=== PATIENT | female | born 1965 | race Caucasian/White ===

== ENCOUNTER 2016-09-03 16:23 | Emergency (ER) | payer SELFPAY ==
[2016-09-03 16:53] VITALS: BP 167/72; PULSE 85; RESP 18; TEMP 98.9
--- NOTE | 2016-09-03 17:08 | ED ---
General Adult HPI - General Chief complaint: Skin/Abscess/Foreign Body Stated complaint: Abscess Time Seen by Provider: 09/03/16 16:45 Source: patient, RN notes reviewed Mode of arrival: ambulatory Limitations: no limitations - History of Present Illness Initial comments: This is a 51-year-old female who presents with an abscess to the left buttock. Patient states she noticed this today. Patient states she has a history of abscess. Patient has not noticed any drainage from the wound but admits that her tried to poke it to get drainage out. Patient states she has a history of MRSA. Patient denies any fever/chills, nausea/vomiting/diarrhea. Patient past medical history significant for hypertension. Patient denies any recent fever, chills, shortness breath, chest pain, abdominal pain, nausea/ vomiting/diarrhea, back pain, numbness, tingling, hematuria, headache, or visual changes, or any other complaints. - Related Data Home Medications Medication Instructions Recorded Confirmed Calcium Carbonate [Calcium] 600 mg PO DAILY 01/29/16 09/03/16 Triamterene/Hydrochlorothiazid 1 tab PO DAILY 01/29/16 09/03/16 [Maxzide 37.5-25] Previous Rx's Medication Instructions Recorded HYDROcodone/APAP 5-325MG [[place] 1 tab PO Q6HR #12 tab 09/03/16 5-325] Sulfamethox-Tmp 800-160Mg [Bactrim 1 tab PO Q12HR #28 tab 09/03/16 DS 800-160 mg] Allergies Allergy/AdvReac Type Severity Reaction Status Date / Time cephalexin monohydrate Allergy Unknown Verified 09/03/16 16:51 [From Keflex] Review of Systems ROS Statement: Those systems with pertinent positive or pertinent negative responses have been documented in the HPI. ROS Other: All systems not noted in ROS Statement are negative. Past Medical History Past Medical History: Hypertension History of Any Multi-Drug Resistant Organisms: MRSA Date of last positivie culture/infection: 01/29/16 MDRO Source:: Abdomen Past Surgical History: Tubal Ligation Past Anesthesia/Blood Transfusion Reactions: No Reported Reaction Past Psychological History: No Psychological Hx Reported Additional Psychological History / Comment(s): . Works in an [employer] setting. Smoked in the past related has been many years. No significant alcohol use. No recreational drug use. No travel history. Pet dog since July. Noted also in the home has MRSA or skin infections. No history Smoking Status: Former smoker Past Alcohol Use History: Rare Past Drug Use History: None Reported - Past Family History Father Family Medical History: Cancer, Congestive Heart Failure (CHF), Hypertension Additional Family Medical History / Comment(s): Prostate CA Mother Family Medical History: Hypertension General Exam - General Exam Comments Initial Comments: General: The patient is awake and alert, in no distress, and does not appear acutely ill. Neck: The neck is supple, there is no tenderness or JVD. Cardiovascular: There is a regular rate and rhythm. No murmur, rub or gallop is appreciated. Respiratory: Lungs are clear to auscultation, respirations are non-labored, breath sounds are equal. No wheezes, stridor, rales, or rhonchi. Musculoskeletal: Normal ROM, no tenderness. Strength 5/5. Sensation intact. Radial Pulses equal bilaterally 2+. Neurological: A&O x 3. CN II-XII intact, There are no obvious motor or sensory deficits. Coordination appears grossly intact. Speech is normal. Skin: There is an erythematous area to the left buttock approximately 5 cm that is indurated, erythematous and tender. There is a central black eschar. No drainage present. Skin is warm and dry. Psychiatric: Cooperative, appropriate mood & affect, normal judgment. Limitations: no limitations Course Vital Signs 09/03/16 16:51 Temperature 98.9 F Pulse Rate 85 Respiratory 18 Rate Blood Pressure 167/72 O2 Sat by Pulse 98 Oximetry Procedures - Procedures Initial comment: Procedure: Incision and drainage The skin overlying the abscess was prepped with Betadine, and anesthetized with 1% lidocaine without epinephrine. A #11 scalpel was then used to incise the abscess. Some purulent material was then extracted from the lesion. Wound culture obtained. Gauze dressing placed on top, The patient tolerated the procedure well. Medical Decision Making - Medical Decision Making This is a 51-year-old female presents to the abscess to the left buttock. On physical exam There is an erythematous area to the left buttock approximately 5 cm that is indurated, erythematous and tender. There is a central black eschar. No drainage present. Skin is warm and dry. Procedure: Incision and drainage The skin overlying the abscess was prepped with Betadine, and anesthetized with 1% lidocaine without epinephrine. A #11 scalpel was then used to incise the abscess. Some purulent material was then extracted from the lesion. Wound culture obtained. Gauze dressing placed on top, The patient tolerated the procedure well. Discussed that patient was put on a course of Bactrim. Discussed warm compresses to the area. Discussed return parameters.Discussed that patient should follow up with PCP in one to 2 days or return to the [facility] for any worsening symptoms or for any further concerns. Patient and were receptive to this plan and patient will be discharged home. Disposition Clinical Impression: Abscess Disposition: HOME SELF-CARE Condition: Good Instructions: Abscess (ED) Additional Instructions: Present diagnosis antibiotics. Please use warm compresses to the area. Please use pain medication as prescribed. Please follow-up with family doctor in the next 2 days of symptoms have not improved. Please return to emergency room if the symptoms increase or worsen or for any other concerns. Prescriptions: Sulfamethox-Tmp 800-160Mg [Bactrim DS 800-160 mg] 1 tab PO Q12HR #28 tab Referrals: None,Stated [Primary Care Provider] - 1-2 days Time of Disposition: 18:07
== END 2016-09-03 18:18 | disposition home or self-care (01) ==
LOC: EC 16:23
DX: L02.31 Cutaneous abscess of buttock (principal); Z86.14 Personal history of Methicillin resistant Staphylococcus aureus infection; I10 Essential (primary) hypertension; Z79.899 Other long term (current) drug therapy; Z88.1 Allergy status to other antibiotic agents; Z87.891 Personal history of nicotine dependence
CPT/HCPCS: 10060; 87070; 87077; 87186; 87205; 99283

== ENCOUNTER 2020-07-12 07:59 | Day surgery (SDC) | payer OTHER ==
[2020-07-06 17:00] VITALS: BMI 46.0
--- NOTE | 2020-07-12 06:30 | P.GSHP ---
History of Present Illness H&P Date: 07/12/20 CHIEF COMPLAINT: GERD and colon screen HISTORY OF PRESENT ILLNESS: The patient is a 55-year-old female who presents with gastroesophageal reflux disease and need for colon screen. Upper and lower endoscopy were offered for further evaluation and management. PAST MEDICAL HISTORY: Please see list. PAST SURGICAL HISTORY: Please see list. MEDICATIONS: Please see list. ALLERGIES: Please see list. SOCIAL HISTORY: No illicit drug use FAMILY HISTORY: No reports of Crohn disease or ulcerative colitis. REVIEW OF ORGAN SYSTEMS: CONSTITUTIONAL: No reports of fevers or chills. GI: Denies any blood in stools or constipation. PHYSICAL EXAM: VITAL SIGNS: Stable GENERAL: Well-developed pleasant in no acute distress. HEENT: No scleral icterus. Extraocular movements grossly intact. Moist buccal mucosa. NECK: Supple without lymphadenopathy. CHEST: Unlabored respirations. Equal bilateral excursions. CARDIOVASCULAR: Regular rate and rhythm. Distal 2+ pulses. ABDOMEN: Soft, nondistended. MUSCULOSKELETAL: No clubbing, cyanosis, or edema. ASSESSMENT: 1. Gastroesophageal reflux disease 2. Colon screen. PLAN: 1. Recommend proceeding with an upper and lower endoscopy Past Medical History Past Medical History: Hypertension, Sleep Apnea/CPAP/BIPAP Additional Past Medical History / Comment(s): No tx for sleep apnea yet. History of Any Multi-Drug Resistant Organisms: MRSA Date of last positivie culture/infection: 09/03/16 MDRO Source:: buttock Past Surgical History: Joint Replacement, Orthopedic Surgery, Tonsillectomy, Tubal Ligation Additional Past Surgical History / Comment(s): Total left knee replacement 2017; Rt Total Knee 05/29/20. Colonoscopy Past Anesthesia/Blood Transfusion Reactions: No Reported Reaction Smoking Status: Former smoker - Past Family History Father Family Medical History: Cancer, Congestive Heart Failure (CHF), Hypertension Additional Family Medical History / Comment(s): Prostate CA Mother Family Medical History: Hypertension Brother(s) Family Medical History: Cancer Additional Family Medical History / Comment(s): pancreatic cancer Medications and Allergies Home Medications Medication Instructions Recorded Confirmed Type Triamterene/Hydrochlorothiazid 1 tab PO DAILY 01/29/16 07/06/20 History [Maxzide 37.5-25] Ascorbic Acid [Vitamin C] 500 mg PO DAILY 04/25/20 07/06/20 History Calcium Carbonate/Vitamin D3 1 each PO DAILY 04/25/20 07/06/20 History [Calcium 600-Vit D3 800 Caplet] Cetirizine HCl [Zyrtec] 10 mg PO DAILY 04/25/20 07/06/20 History Famotidine [Pepcid] 20 mg PO BID PRN 04/25/20 07/06/20 History Losartan [Cozaar] 25 mg PO DAILY 04/25/20 07/06/20 History Magnesium 250 mg PO DIRECTED 04/25/20 07/06/20 History Multivitamins, Thera [Multivitamin 1 tab PO DAILY 04/25/20 07/06/20 History (formulary)] Naproxen 500 mg PO DAILY PRN 04/25/20 07/06/20 History Zinc 50 mg PO DAILY 04/25/20 07/06/20 History hydrOXYzine HCL [Atarax] 50 mg PO HS 04/25/20 07/06/20 History Acetaminophen [Tylenol Extra 1,000 mg PO Q6H PRN 07/06/20 07/06/20 History Strength] Biotin 20,000 mcg PO DAILY 07/06/20 07/06/20 History Cyclobenzaprine [Flexeril] 10 mg PO Q12H 07/06/20 07/06/20 History Ferrous Sulfate [Feosol] 325 mg PO DAILY 07/06/20 07/06/20 History HYDROcodone/APAP 5-325MG [[place] 1 tab PO Q6HR PRN 07/06/20 07/06/20 History 5-325] Ibuprofen [Motrin Ib] 600 - 800 mg PO Q8H PRN 07/06/20 07/06/20 History Allergies Allergy/AdvReac Type Severity Reaction Status Date / Time cephalexin monohydrate Allergy Unknown Verified 07/06/20 16:22 [From Keflex]
[~2020-07-12 07:59] MED LIST: LACTATED RINGERS 1,000 ML IV SCH
[2020-07-12 08:28] VITALS: RESP 16; TEMP 97.4
[2020-07-12] MEDS ORDERED: LIDOCAINE 1% (10MG/ML) FOR IV START INTRADERMA ONE (08:28)
[2020-07-12] MEDS ORDERED: LIDOCAINE 1% INJ 10MG/ML (20 ML MDV) ONE (08:30)
[2020-07-12] MEDS ORDERED: PROPOFOL 10 MG/ML 20 ML VIAL IV ONE (08:30)
[2020-07-12] MEDS ORDERED: MIDAZOLAM 2 MG/2 ML VIAL ONE (08:30)
[2020-07-12] MEDS ORDERED: fentaNYL (PF) 50 MCG/ML 2 ML AMP ONE (08:30)
[2020-07-12 09:34] VITALS: BP 127/83; PULSE 85
--- NOTE | 2020-07-12 09:35 | P.PCN ---
Date of Procedure: 07/12/20 Description of Procedure: PREOPERATIVE DIAGNOSIS: Gastroesophageal reflux disease. Morbid obesity. POSTOPERATIVE DIAGNOSIS: Morbid obesity. Gastritis. Gastroesophageal reflux disease. Diaphragmatic hiatal hernia Severe obstructive sleep apnea Duodenitis OPERATION: Esophagogastroduodenoscopy with biopsies along antrum. SURGEON: Fela Bernabe MD ANESTHESIA: MAC. INDICATIONS: The patient is a 55-year-old female who presents with a history of reflux disease. Benefits and risks of the procedure were described. Informed consent was obtained. DESCRIPTION: The patient was brought into the endoscopy suite and laid in the left lateral decubitus position. An Olympus gastroscope was passed along the posterior oropharynx down to the distal esophagus where the squamocolumnar junction was encountered at 37 cm from the incisors. Patient had severe posterior oral pharyngeal excess tissue at risk for obstructive sleep apnea. The stomach was entered and no bile reflux was found. Additional findings are listed below. Biopsies with cold forceps were obtained of the antrum. The first through third portion of the duodenum was examined and remarkable. Retroflexion of the scope confirmed Hill grade 3 lower esophageal valve. The squamocolumnar junction demonstrated LA grade B erosive esophagitis. The stomach was desufflated. The patient tolerated the procedure well. FINDINGS: Squamocolumnar junction 40 cm from the incisors. Diaphragmatic hiatus at 40 cm. Hiatal hernia, 4 cm Hill grade 4 lower esophageal valve. LA grade B erosive esophagitis. No active duodenitis. Chronic gastritis with recent bleed Severe obstructive sleep apnea RECOMMENDATIONS: 1. Upper endoscopy as needed. 2. Recommend assessment with bookmaker map for obstructive sleep apnea
--- NOTE | 2020-07-12 09:43 | P.PCN ---
Date of Procedure: 07/12/20 Description of Procedure: PREOPERATIVE DIAGNOSIS: History of polyps POSTOPERATIVE DIAGNOSIS: Moderate severe sigmoid colitis Inflammatory polyps OPERATION: Colonoscopy to the sigmoid colon and cold forceps biopsy SURGEON: Fela Bernabe MD. ANESTHESIA: MAC. INDICATIONS: The patient is a 55-year-old female who presents for colonoscopy screening. Her last colonoscopy was 5 years with history of polyps. Benefits and risks were described and informed consent was obtained. DESCRIPTION OF PROCEDURE: The patient had undergone Gatorade, MiraLAX and Dulcolax prep. She had been brought into the operating room and laid in the left lateral decubitus position. After adequate intravenous sedation, the rectum was examined with 2% lidocaine jelly. No external hemorrhoids were encountered. The rectal tone was loose. The patient had hypoxia due to sleep apnea and tachycardia. No lesions were pal pated in the rectal vault. An Olympus colonoscope was advanced along the rectum to a very tortuous sigmoid colon. Additionally, severe sigmoid colitis and stricture was identified with 3 mm inflammatory polyp prohibiting advancement of the scope. The prep was also suboptimal. Despite multiple maneuvers including patient's hypoxia due to severe obstructive sleep apnea, the procedure was aborted. The scope was passed to 30 cm from the anal verge. Cold forceps biopsies were obtained of the sigmoid colon As the patient posed high risk for postprocedural complications due to her comorbidities, the procedure was discontinued. The colon was desufflated. The patient was transferred to recovery. Withdrawal time was over 6 minutes. FINDINGS: [place] preparation quality scale 3 (1-5) Tortuous sigmoid colon with ctive moderate to severe sigmoid colitis and stricture at 30 cm from the anal verge No external prolapsed hemorrhoids. Scope advanced to sigmoid colon at 30 cm. No arteriovenous malformations. Inflammatory polyp 3 mm with biopsy obtained. No focal colitis. RECOMMENDATIONS: 1. Recommend assessment with routing machine operator for severe obstructive sleep apnea including cardiovascular assessment. 2. Repeat colonoscopy 6 months, January [address] of the abdomen and pelvis or severity of colitis Plan - Discharge Summary Discharge Rx Participant: No New Discharge Prescriptions: Continue Triamterene/Hydrochlorothiazid [Maxzide 37.5-25] 1 tab PO DAILY Zinc 50 mg PO DAILY Naproxen 500 mg PO DAILY PRN PRN Reason: Pain Multivitamins, Thera [Multivitamin (formulary)] 1 tab PO DAILY Magnesium 250 mg PO DIRECTED Losartan [Cozaar] 25 mg PO DAILY Famotidine [Pepcid] 20 mg PO BID PRN PRN Reason: Itching Cetirizine HCl [Zyrtec] 10 mg PO DAILY Calcium Carbonate/Vitamin D3 [Calcium 600-Vit D3 800 Caplet] 1 each PO DAILY Ascorbic Acid [Vitamin C] 500 mg PO DAILY hydrOXYzine HCL [Atarax] 50 mg PO HS Ibuprofen [Motrin Ib] 600 - 800 mg PO Q8H PRN PRN Reason: PAIN, SWELLING Acetaminophen [Tylenol Extra Strength] 1,000 mg PO Q6H PRN PRN Reason: Pain Biotin 20,000 mcg PO DAILY HYDROcodone/APAP 5-325MG [[place] 5-325] 1 tab PO Q6HR PRN PRN Reason: Pain Cyclobenzaprine [Flexeril] 10 mg PO Q12H Ferrous Sulfate [Iron (65 MG Elemental)] 325 mg PO DAILY Discharge Medication List Triamterene/Hydrochlorothiazid [Maxzide 37.5-25] 1 tab PO DAILY 01/29/16 [History] Ascorbic Acid [Vitamin C] 500 mg PO DAILY 04/25/20 [History] Calcium Carbonate/Vitamin D3 [Calcium 600-Vit D3 800 Caplet] 1 each PO DAILY 04/25/20 [History] Cetirizine HCl [Zyrtec] 10 mg PO DAILY 04/25/20 [History] Famotidine [Pepcid] 20 mg PO BID PRN 04/25/20 [History] Losartan [Cozaar] 25 mg PO DAILY 04/25/20 [History] Magnesium 250 mg PO DIRECTED 04/25/20 [History] Multivitamins, Thera [Multivitamin (formulary)] 1 tab PO DAILY 04/25/20 [History] Naproxen 500 mg PO DAILY PRN 04/25/20 [History] Zinc 50 mg PO DAILY 04/25/20 [History] hydrOXYzine HCL [Atarax] 50 mg PO HS 04/25/20 [History] Acetaminophen [Tylenol Extra Strength] 1,000 mg PO Q6H PRN 07/06/20 [History] Biotin 20,000 mcg PO DAILY 07/06/20 [History] Cyclobenzaprine [Flexeril] 10 mg PO Q12H 07/06/20 [History] Ferrous Sulfate [Iron (65 MG Elemental)] 325 mg PO DAILY 07/06/20 [History] HYDROcodone/APAP 5-325MG [[place] 5-325] 1 tab PO Q6HR PRN 07/06/20 [History] Ibuprofen [Motrin Ib] 600 - 800 mg PO Q8H PRN 07/06/20 [History] [facility] [facility] [place] [place] [place] [facility] [place] [facility] Patient Instructions/Handouts: *[facility] - (Anesthesia) Endoscopy Discharge Instructions, Sleep Apnea (GEN), Ulcerative Colitis (DC), Colonoscopy (DC), Upper Endoscopy (DC) Activity/Diet/Wound Care/Special Instructions: Repeat colonoscopy in 6 months following resolution of colitis, January 2021 Discharge Disposition: HOME SELF-CARE
== END 2020-07-12 10:30 | disposition home or self-care (01) ==
LOC: ORWHC2ENDO 07:59
PROVIDERS: ATTEND Surgery Plastic and Reconstructive Surgery
DX: Z12.11 Encounter for screening for malignant neoplasm of colon (principal); K29.50 Unspecified chronic gastritis without bleeding; K52.9 Noninfective gastroenteritis and colitis, unspecified; K44.9 Diaphragmatic hernia without obstruction or gangrene; K21.00 Gastro-esophageal reflux disease with esophagitis, without bleeding; G47.33 Obstructive sleep apnea (adult) (pediatric); Q43.8 Other specified congenital malformations of intestine; R09.02 Hypoxemia; E66.01 Morbid (severe) obesity due to excess calories; Z86.010 Personal history of colon polyps; Z68.41 Body mass index [BMI] 40.0-44.9, adult; I10 Essential (primary) hypertension; Z86.14 Personal history of Methicillin resistant Staphylococcus aureus infection; Z98.51 Tubal ligation status; Z96.653 Presence of artificial knee joint, bilateral; Z98.890 Other specified postprocedural states; Z82.49 Family history of ischemic heart disease and other diseases of the circulatory system; Z80.42 Family history of malignant neoplasm of prostate; Z80.0 Family history of malignant neoplasm of digestive organs; Z79.52 Long term (current) use of systemic steroids; Z79.899 Other long term (current) drug therapy; Z88.1 Allergy status to other antibiotic agents
CPT/HCPCS: 88305; 43239; 45331; J2250; J2001; J3010; J2704; 45380

== ENCOUNTER → 2020-07-18 | Outpatient (CLI) | payer OTHER ==
--- NOTE | 2020-07-18 15:03 | P.PN ---
Subjective Progress Note Date: 07/18/20 DATE OF SERVICE: 07/18/2020 CHIEF COMPLAINT: Morbid obesity HISTORY OF PRESENT ILLNESS: Tamiko Dasilva is a 55-year-old female who comes with lifelong morbid obesity. She comes in looking into the sleeve gastrectomy. She has family history of obesity. As a result of her morbid obesity, she has developed hypertensive heart disease, osteoarthritis of the knees. She has completed both upper and lower endoscopy. She presents following her procedures. She is undergoing medical supervised weight loss. At height of 5 feet 3 inches, her ideal body weight is 140 pounds. She comes in 253 pounds from 258 pounds 3 months ago. She has lost 5 pounds in 3 months. Her body mass index is 45.9 down to 45.0. She is 113 pounds overweight. PAST MEDICAL HISTORY: 1. Morbid obesity due to excess calories 2. Body mass index 45.9 3. Hypertensive heart disease 4. Gastroesophageal reflux disease 5. Osteoarthritis of the knee PAST SURGICAL HISTORY: 1. Left total knee replacement HOME MEDICATIONS: Home Medications Medication Instructions Recorded Confirmed Triamterene/Hydrochlorothiazid 1 tab PO DAILY 01/29/16 07/18/20 [Maxzide 37.5-25] Ascorbic Acid [Vitamin C] 500 mg PO DAILY 04/25/20 07/18/20 Calcium Carbonate/Vitamin D3 1 each PO DAILY 04/25/20 07/18/20 [Calcium 600-Vit D3 800 Caplet] Cetirizine HCl [Zyrtec] 10 mg PO DAILY 04/25/20 07/18/20 Famotidine [Pepcid] 20 mg PO BID PRN 04/25/20 07/18/20 Losartan [Cozaar] 25 mg PO DAILY 04/25/20 07/18/20 Magnesium 250 mg PO DIRECTED 04/25/20 07/18/20 Multivitamins, Thera [Multivitamin 1 tab PO DAILY 04/25/20 07/18/20 (formulary)] Naproxen 500 mg PO DAILY PRN 04/25/20 07/18/20 Zinc 50 mg PO DAILY 04/25/20 07/18/20 hydrOXYzine HCL [Atarax] 50 mg PO HS 04/25/20 07/18/20 Acetaminophen [Tylenol Extra 1,000 mg PO Q6H PRN 07/06/20 07/18/20 Strength] Biotin 20,000 mcg PO DAILY 07/06/20 07/18/20 Cyclobenzaprine [Flexeril] 10 mg PO Q12H 07/06/20 07/18/20 Ferrous Sulfate [Iron (65 MG 325 mg PO DAILY 07/06/20 07/18/20 Elemental)] HYDROcodone/APAP 5-325MG [[place] 1 tab PO Q6HR PRN 07/06/20 07/18/20 5-325] Ibuprofen [Motrin Ib] 600 - 800 mg PO Q8H PRN 07/06/20 07/18/20 ALLERGIES: Allergies Allergy/AdvReac Type Severity Reaction Status Date / Time cephalexin monohydrate Allergy Unknown Verified 07/18/20 17:09 [From Philoptima] SOCIAL HISTORY: Past tobacco use. FAMILY HISTORY: No family history of ulcerative colitis disease or Crohn's disease. Family history of morbid obesity. No lupus in the family. No reports of stomach or esophageal cancer. REVIEW OF ORGAN SYSTEMS: CONSTITUTIONAL: At height of 5 feet 3 inches, her ideal body weight is 140 pounds. Her body mass index is 45.9 She is 118 pounds overweight. HEENT: Denies any active troubles with vision or hearing. ENDOCRINE: Denies diabetes. No hypothyroidism. CARDIOVASCULAR: Denies past reports of palpitations or heart attacks or chest pain. RESPIRATORY: Has daytime somnolence. No asthma. GASTROINTESTINAL: Denies any bright red blood per rectum. No diarrhea. No constipation. Has gastroesophageal reflux disease. MUSCULOSKELETAL: Has lower back pain and joint pain. Has osteoarthritis of the knees. NEURO: No headaches. No seizure disorders. PSYCH: Has depression. No suicidal ideation. RHEUMATOLOGIC: No lupus. No rheumatoid arthritis. HEMATOLOGIC: Denies any abnormal bleeding or bruising. No personal history of DVTs. SKIN: No rash. No skin cancer. PHYSICAL EXAM: VITAL SIGNS: Height 5 foot 3 inches, weight 253 pounds. BMI 45.0 Vital Signs Temp 98.3 F 07/18/20 15:05 Pulse 89 07/18/20 15:05 Resp 18 07/18/20 15:05 BP 138/93 07/18/20 15:05 Pulse Ox GENERAL: Well-developed in no acute distress. HEENT: No scleral icterus. Extraocular movements grossly intact. Hears conversational speech. No nasal drainage. NECK: Supple without lymphadenopathy. CHEST: Nonlabored respirations with equal bilateral excursions. CARDIOVASCULAR: Regular rate and regular rhythm. Distal 2+ pulses. ABDOMEN: Obese, soft, nontender, nondistended. MUSCULOSKELETAL: No clubbing, cyanosis. NEURO: No focal or lateralizing signs. Cranial nerves 2 through 12 grossly within normal limits. PSYCH: Appropriate affect. Alert and oriented to person, place and time. SKIN: Good skin turgor. Well perfused. LABS: Iron is low, Pre-albumin is low, Vitamin A is low, Vitamin D is low EKG: Left atrial enlargement COLONOSCOPY: [place] preparation quality scale 3 (1-5) Tortuous sigmoid colon with ctive moderate to severe sigmoid colitis and stricture at 30 cm from the anal verge No external prolapsed hemorrhoids. Scope advanced to sigmoid colon at 30 cm. No arteriovenous malformations. Inflammatory polyp 3 mm with biopsy obtained. No focal colitis. EGD REPORT: Squamocolumnar junction 37 cm from the incisors. Diaphragmatic hiatus at 41 cm. Hiatal hernia, 4 cm Hill grade 4 lower esophageal valve. LA grade B erosive esophagitis. No active duodenitis. Chronic gastritis with recent bleed Severe obstructive sleep apnea PATHOLOGY: A. GASTRIC ANTRUM, BIOPSY: Moderate chronic gastritis. Helicobacter pylori organisms are not identified on routine H+E sections. B. SIGMOID COLON, BIOPSY: Non-specific acute colitis. See note. ASSESSMENT: 1. Morbid obesity due to excess calories 2. Body mass index 45.9 to 45.0 3. Hypertensive heart disease 4. Gastroesophageal reflux disease 5. Osteoarthritis of the knee 6. Gallbladder disorder 7. Colitis 8. Severe obstructive sleep apnea PLAN: 1. She has gastroesophageal reflux disease with a loss valve. Recommend esophagram. 2. Her colonoscopy demonstrated colitis. Recommend CT of the abdomen and pelvis for ischemic colitis. 3. Recommend cardiac clearance for abnormal EKG. 4. Recommend colonoscopy repeat for follow-up of colitis. 5. During her procedure, she has severe apnea, which would require treatment prior to her bariatric procedure. Objective - Vital Signs Vital signs: Intake & Output 07/17/20 07/18/20 07/18/20 18:59 06:59 18:59 Weight 115.212 kg - Labs CBC & Chem 7: 07/18/20 15:37 07/18/20 15:37
[2020-07-18 15:08] VITALS: BP 138/93; PULSE 89; RESP 18; TEMP 98.3; BMI 44.9
[2020-07-18 16:52] LABS: HCT 39.5 % (34.0-46.0); HGB 12.5 gm/dL (11.4-16.0); MCH 28.3 pg (25.0-35.0); MCHC 31.6 g/dL (31.0-37.0); MCV 89.5 fL (80.0-100.0); Mean Platelet Volume 7.2; Platelet Count 350 k/uL (150-450); RBC 4.41 m/uL (3.80-5.40); RDW 14.8 % (11.5-15.5)
[2020-07-19 00:59] LABS: Partial Thromboplastin Time 29.6 sec (23.5-31.0); Prothrombin Time 10.8 sec (9.9-11.9)
[2020-07-19 03:20] LABS: Hemoglobin A1C 5.6 % (4.0-6.0)
[2020-07-19 04:43] LABS: % Iron Saturation 10.03 (12.00-45.00); ALT 27 U/L (8-44); AST 25 U/L (13-35); African American GFR (CKD) 118.1 (60.0-200.0); Albumin/Globulin Ratio 1.83 (1.60-3.17); Alkaline Phosphatase 77 U/L (41-126); BUN/Creat Ratio 16.67 Ratio (12.00-20.00); Carbon Dioxide 28.3 mmol/L (21.6-31.8); Chloride 103 mmol/L (96-109); Chol/HDL Ratio 3.45; Cholesterol 145 mg/dL (0-200); Globulin 2.4 g/dL (1.6-3.3); Glucose 74 mg/dL (70-110); Iron 31 ug/dL (50-170); LDL Cholesterol,Calculated 75.6 mg/dL (0.0-131.0); Non-African American GFR(CKD) 101.9 (60.0-200.0); Potassium 3.7 mmol/L (3.5-5.5); Sodium 141 mmol/L (135-145); Total Bilirubin 0.3 mg/dL (0.3-1.2); Total Iron Binding Capacity 309 ug/dL (228-460); Total Protein 6.8 g/dL (6.2-8.2)
[2020-07-19 04:51] LABS: Ferritin 30.4 ng/mL (10.0-291.0)
[2020-07-19 05:43] LABS: Folate, Serum >24.0 ng/mL
[2020-07-19 12:43] LABS: Zinc, Serum 104 ug/dL (60-130)
[2020-07-20 07:14] LABS: Vitamin A 30 ug/dL (38-106)
[2020-07-20 07:20] LABS: Vit B1(Thiamine) 78 ug/L (38-122)
[2020-07-22 02:36] LABS: Selenium 106 mcg/L (63-160)
== END | disposition home or self-care (01) ==
LOC: BARWHC3 13:56
PROVIDERS: ATTEND Surgery Plastic and Reconstructive Surgery
DX: E66.01 Morbid (severe) obesity due to excess calories (principal); I11.9 Hypertensive heart disease without heart failure; K21.9 Gastro-esophageal reflux disease without esophagitis; M17.10 Unilateral primary osteoarthritis, unspecified knee; G47.33 Obstructive sleep apnea (adult) (pediatric); K59.2 Neurogenic bowel, not elsewhere classified; K52.9 Noninfective gastroenteritis and colitis, unspecified; K80.20 Calculus of gallbladder without cholecystitis without obstruction; Z68.42 Body mass index [BMI] 45.0-49.9, adult; Z88.1 Allergy status to other antibiotic agents; Z79.899 Other long term (current) drug therapy; Z79.2 Long term (current) use of antibiotics; Z87.891 Personal history of nicotine dependence
CPT/HCPCS: 84255; 84134; 84425; 80061; 80053; 82607; 82728; 82525; 82746; 83540; 83550; 83735; 84100; 84443; 84590; 84630; 85027; 85610; 85730; 82306; 83970; 83036; 93005; G0463; 99211

== ENCOUNTER → 2020-09-03 | Outpatient (CLI) | payer OTHER ==
--- NOTE | 2020-09-03 11:23 | CT ---
EXAMINATION TYPE: CT abdomen pelvis w con DATE OF EXAM: 09/03/2020 COMPARISON: None HISTORY: Generalized abdominal pain CT DLP: 2693.3 mGycm CONTRAST: CT scan of the abdomen and pelvis is performed with Oral Contrast and with IV Contrast, patient injec usama with 100 mL of Isovue 300. FINDINGS: LUNG BASES-: No visible nodule. No infiltrate. LIVER/GB: No calcified gallstones. There is evidence of hepatomegaly with underlying fatty hepatic infiltration. No space-occupying lesion is seen. Biliary tree is of normal caliber. PANCREAS: No inflammation. No distinct mass. SPLEEN: No splenic enlargement. No lesion seen. ADRENALS: No nodule. No thickening. KIDNEYS/BLADDER: No hydronephrosis. No nephrolithiasis. No distinct renal mass. Urinary bladder g rossly unremarkable. BOWEL: Normal appendix. Normal bowel caliber. No inflammation. GENITAL ORGANS: No gross abnormality. LYMPH NODES: No greater than 1cm abdominal or pelvic lymph nodes are appreciated. AORTA: No significant abnormality. OSSEOUS STRUCTURES: No significant abnormality is seen. OTHER: No significant additional abnormality is seen. IMPRESSION: 1. There is evidence of hepatomegaly with underlying fatty hepatic infiltration.
--- NOTE | 2020-09-03 13:48 | FL ---
ESOPHOGRAM. HISTORY: Dysphagia Esophagram was performed per the air contrast technique. The patient swallowed barium and effervesce nt crystals without difficulty or delay. Esophageal peristalsis and motility appear to be within normal limits. There is no evidence for filling defect, mass or diverticulum. No hiatal hernia seen. Subsequently single contrast cervical esophagram was performed which fails demonstrate evidence for a spiration penetration or mass. IMPRESSION: Unremarkable study.
== END | disposition home or self-care (01) ==
LOC: RADCTMAIN 07:44
PROVIDERS: ATTEND Surgery Plastic and Reconstructive Surgery
DX: R16.0 Hepatomegaly, not elsewhere classified (principal); K76.0 Fatty (change of) liver, not elsewhere classified; R13.10 Dysphagia, unspecified
CPT/HCPCS: 74220; 74177; Q9967

== ENCOUNTER → 2020-10-10 | Outpatient (CLI) | payer OTHER ==
[2020-10-10 15:38] VITALS: BP 115/78; PULSE 82; RESP 18; TEMP 98.8; BMI 45.5
--- NOTE | 2020-10-10 15:52 | P.PN ---
Subjective Progress Note Date: 10/10/20 She comes in with colitis. Recommend Flagyl. May have sleeve. Recommend Supervised weight loss. Objective - Vital Signs Vital signs: Vital Signs Temp 98.8 F 10/10/20 15:32 Pulse 82 10/10/20 15:32 Resp 18 10/10/20 15:32 BP 115/78 10/10/20 15:32 Pulse Ox Intake & Output 10/09/20 10/10/20 10/10/20 18:59 06:59 18:59 Weight 116.573 kg
== END ==
LOC: BARWHC3 15:13
PROVIDERS: ATTEND Surgery Plastic and Reconstructive Surgery
DX: E66.01 Morbid (severe) obesity due to excess calories (principal); Z98.84 Bariatric surgery status; Z46.51 Encounter for fitting and adjustment of gastric lap band; Z87.891 Personal history of nicotine dependence; I10 Essential (primary) hypertension
CPT/HCPCS: 99211

== ENCOUNTER 2021-05-16 08:39 | Day surgery (SDC) | payer OTHER ==
[2021-05-13 12:43] VITALS: BMI 44.2
--- NOTE | 2021-05-16 08:24 | P.GSHP ---
History of Present Illness H&P Date: 05/16/21 CHIEF COMPLAINT: Colon screen HISTORY OF PRESENT ILLNESS: The patient is a 56-year-old female who presents for colon screen. Lower endoscopy was offered for further evaluation and management. PAST MEDICAL HISTORY: Please see list. PAST SURGICAL HISTORY: Please see list. MEDICATIONS: Please see list. ALLERGIES: Please see list. SOCIAL HISTORY: No illicit drug use FAMILY HISTORY: No reports of Crohn disease or ulcerative colitis. REVIEW OF ORGAN SYSTEMS: CONSTITUTIONAL: No reports of fevers or chills. PHYSICAL EXAM: VITAL SIGNS: Stable GENERAL: Well-developed pleasant in no acute distress. HEENT: No scleral icterus. Extraocular movements grossly intact. Moist buccal mucosa. NECK: Supple without lymphadenopathy. CHEST: Unlabored respirations. Equal bilateral excursions. CARDIOVASCULAR: Regular rate and rhythm. Distal 2+ pulses. ABDOMEN: Soft, nontender, nondistended. MUSCULOSKELETAL: No clubbing, cyanosis, or edema. ASSESSMENT: 1. Colon screen. PLAN: 1. Recommend proceeding with a lower endoscopy Past Medical History Past Medical History: GERD/Reflux, Hypertension, Sleep Apnea/CPAP/BIPAP Additional Past Medical History / Comment(s): No tx for sleep apnea yet. History of Any Multi-Drug Resistant Organisms: MRSA Date of last positivie culture/infection: 09/03/16 MDRO Source:: buttock Past Surgical History: Joint Replacement, Orthopedic Surgery, Tonsillectomy, Tubal Ligation Additional Past Surgical History / Comment(s): Total left knee replacement 2018; Rt Total Knee 05/29/20. Colonoscopy, LT KNEE SCOPE, Past Anesthesia/Blood Transfusion Reactions: No Reported Reaction Smoking Status: Former smoker - Past Family History Father Family Medical History: Cancer, Congestive Heart Failure (CHF), Hypertension Additional Family Medical History / Comment(s): Prostate CA Mother Family Medical History: Hypertension Brother(s) Family Medical History: Cancer Additional Family Medical History / Comment(s): pancreatic cancer Medications and Allergies Home Medications Medication Instructions Recorded Confirmed Type Triamterene/Hydrochlorothiazid 1 tab PO DAILY 01/29/16 05/13/21 History [Maxzide 37.5-25] Ascorbic Acid [Vitamin C] 500 mg PO DAILY 04/25/20 05/13/21 History Calcium Carbonate/Vitamin D3 1 each PO DAILY 04/25/20 05/13/21 History [Calcium 600-Vit D3 20 Mcg (800 Iu)] Famotidine [Pepcid] 20 mg PO BID PRN 04/25/20 05/13/21 History Losartan [Cozaar] 25 mg PO DAILY 04/25/20 05/13/21 History Magnesium 250 mg PO DIRECTED 04/25/20 05/13/21 History Multivitamins, Thera [Multivitamin 1 tab PO DAILY 04/25/20 05/13/21 History (formulary)] Naproxen 500 mg PO DAILY PRN 04/25/20 05/13/21 History Zinc 50 mg PO DAILY 04/25/20 05/13/21 History hydrOXYzine HCL [Atarax] 50 mg PO HS 04/25/20 05/13/21 History Acetaminophen [Tylenol Extra 1,000 mg PO Q6H PRN 07/06/20 05/13/21 History Strength] Biotin 20,000 mcg PO DAILY 07/06/20 05/13/21 History Cyclobenzaprine [Flexeril] 10 mg PO Q12H 07/06/20 05/13/21 History Ferrous Sulfate [Iron (65 MG 325 mg PO DAILY 07/06/20 05/13/21 History Elemental)] HYDROcodone/APAP 5-325MG [[place] 1 tab PO Q6HR PRN 07/06/20 05/13/21 History 5-325] Ibuprofen [Motrin Ib] 600 - 800 mg PO Q8H PRN 07/06/20 05/13/21 History Loratadine 10 mg PO DAILY 05/13/21 05/13/21 History Allergies Allergy/AdvReac Type Severity Reaction Status Date / Time cephalexin monohydrate Allergy Unknown Verified 05/13/21 12:32 [From Keflex]
[2021-05-16 09:08] VITALS: TEMP 96.8
[2021-05-16] MEDS ORDERED: LIDOCAINE 1% (10MG/ML) FOR IV START INTRADERMA ONE (09:10)
[2021-05-16] MEDS ORDERED: LIDOCAINE 1% INJ 10MG/ML (20 ML MDV) ONE (10:19)
[2021-05-16] MEDS ORDERED: PROPOFOL 10 MG/ML 20 ML VIAL IV ONE (10:19)
[2021-05-16] MEDS ORDERED: KETAMINE 10 MG/ML 20 ML VIAL ONE (10:19)
--- NOTE | 2021-05-16 10:54 | P.PCN ---
Date of Procedure: 05/16/21 Description of Procedure: PREOPERATIVE DIAGNOSIS: Personal history of colon polyps Colonoscopy screening POSTOPERATIVE DIAGNOSIS: Personal history of colon polyps Colonoscopy screening Sigmoid diverticulosis Ulcerative colitis OPERATION: Colonoscopy to the ileocecal valve and appendiceal orifice, cecum Colonoscopy with cold forceps biopsy SURGEON: Fela Bernabe MD. ANESTHESIA: MAC. INDICATIONS: The patient is an 64-year-old male who presents family history of malignant colon polyps and personal history of colon polyps. Last colonoscopy 5 years. Benefits and risks were described and informed consent was obtained. DESCRIPTION OF PROCEDURE: The patient had undergone Sutab prep. The patient had been brought into the operating room and laid in the left lateral decubitus position. After adequate intravenous sedation, the rectum was examined with 2% lidocaine jelly. No external hemorrhoids were encountered. The rectal tone was within normal limits. No lesions were palpated in the rectal vault. An Olympus colonoscope was advanced until the cecum, ileocecal valve and appendiceal orifice were clearly viewed. The prep was good. Sigmoid diverticulosis was encountered. Cryptic ulcerations along the colon involving the sigmoid colon transverse colon were identified with cold forceps biopsies obtained. Retroflexion of the scope demonstrated grade 1 internal hemorrhoids without active bleeding or inflammation. The colon was desufflated. The patient had tolerated the procedure well. Withdrawal time was over 6 minutes. FINDINGS: Aronchick preparation quality scale 2 (1-5) Internal hemorrhoids, grade 1 No external hemorrhoids No arteriovenous malformations. Sigmoid diverticulosis Cryptic ulcerations along the colon involving the sigmoid colon transverse colon were identified with cold forceps biopsies obtained. RECOMMENDATIONS: 1. Features of ulcerative colitis and recommend yearly colonoscopies, 2021 2. Metronidazole 500 mg 3 times a day for colitis 3. Immunomodulators therapy with referral to gastroenterology Plan - Discharge Summary Discharge Rx Participant: No New Discharge Prescriptions: New metroNIDAZOLE [Flagyl] 500 mg PO TID #30 tab Continue Triamterene/Hydrochlorothiazid [Maxzide 37.5-25] 1 tab PO DAILY Zinc 50 mg PO DAILY Naproxen 500 mg PO DAILY PRN PRN Reason: Pain Multivitamins, Thera [Multivitamin (formulary)] 1 tab PO DAILY Magnesium 250 mg PO DIRECTED Losartan [Cozaar] 25 mg PO DAILY Famotidine [Pepcid] 20 mg PO BID PRN PRN Reason: Itching Calcium Carbonate/Vitamin D3 [Calcium 600-Vit D3 20 Mcg (800 Iu)] 1 each PO DAILY Ascorbic Acid [Vitamin C] 500 mg PO DAILY hydrOXYzine HCL [Atarax] 50 mg PO HS Ibuprofen [Motrin Ib] 600 - 800 mg PO Q8H PRN PRN Reason: PAIN, SWELLING Acetaminophen [Tylenol Extra Strength] 1,000 mg PO Q6H PRN PRN Reason: Pain Biotin 20,000 mcg PO DAILY HYDROcodone/APAP 5-325MG [[place] 5-325] 1 tab PO Q6HR PRN PRN Reason: Pain Cyclobenzaprine [Flexeril] 10 mg PO Q12H Ferrous Sulfate [Iron (65 MG Elemental)] 325 mg PO DAILY Loratadine 10 mg PO DAILY Discharge Medication List Triamterene/Hydrochlorothiazid [Maxzide 37.5-25] 1 tab PO DAILY 01/29/16 [History] Ascorbic Acid [Vitamin C] 500 mg PO DAILY 04/25/20 [History] Calcium Carbonate/Vitamin D3 [Calcium 600-Vit D3 20 Mcg (800 Iu)] 1 each PO DAILY 04/25/20 [History] Famotidine [Pepcid] 20 mg PO BID PRN 04/25/20 [History] Losartan [Cozaar] 25 mg PO DAILY 04/25/20 [History] Magnesium 250 mg PO DIRECTED 04/25/20 [History] Multivitamins, Thera [Multivitamin (formulary)] 1 tab PO DAILY 04/25/20 [History] Naproxen 500 mg PO DAILY PRN 04/25/20 [History] Zinc 50 mg PO DAILY 04/25/20 [History] hydrOXYzine HCL [Atarax] 50 mg PO HS 04/25/20 [History] Acetaminophen [Tylenol Extra Strength] 1,000 mg PO Q6H PRN 07/06/20 [History] Biotin 20,000 mcg PO DAILY 07/06/20 [History] Cyclobenzaprine [Flexeril] 10 mg PO Q12H 07/06/20 [History] Ferrous Sulfate [Iron (65 MG Elemental)] 325 mg PO DAILY 07/06/20 [History] HYDROcodone/APAP 5-325MG [[place] 5-325] 1 tab PO Q6HR PRN 07/06/20 [History] Ibuprofen [Motrin Ib] 600 - 800 mg PO Q8H PRN 07/06/20 [History] Loratadine 10 mg PO DAILY 05/13/21 [History] metroNIDAZOLE [Flagyl] 500 mg PO TID #30 tab 05/16/21 [Rx] Follow up Appointment(s)/Referral(s): [facility] [[facility]-STAFF] - 05/29/21 Patient Instructions/Handouts: Ulcerative Colitis (DC), Diverticulitis Diet (ED), Diverticulitis (IP) Activity/Diet/Wound Care/Special Instructions: Repeat colonoscopy yearly due to ulcerative colitis Discharge Disposition: HOME SELF-CARE
[2021-05-16 11:04] VITALS: BP 147/92; PULSE 74; RESP 16
== END 2021-05-16 11:38 | disposition home or self-care (01) ==
LOC: ORWHC2ENDO 08:39
PROVIDERS: ATTEND Surgery Plastic and Reconstructive Surgery
DX: Z12.11 Encounter for screening for malignant neoplasm of colon (principal); K57.30 Diverticulosis of large intestine without perforation or abscess without bleeding; K51.90 Ulcerative colitis, unspecified, without complications; K52.9 Noninfective gastroenteritis and colitis, unspecified; K21.9 Gastro-esophageal reflux disease without esophagitis; Z86.010 Personal history of colon polyps; G47.33 Obstructive sleep apnea (adult) (pediatric); I10 Essential (primary) hypertension; Z86.14 Personal history of Methicillin resistant Staphylococcus aureus infection; Z98.51 Tubal ligation status; Z96.653 Presence of artificial knee joint, bilateral; Z87.891 Personal history of nicotine dependence; Z82.49 Family history of ischemic heart disease and other diseases of the circulatory system; Z80.42 Family history of malignant neoplasm of prostate; Z80.0 Family history of malignant neoplasm of digestive organs; Z79.899 Other long term (current) drug therapy; Z88.1 Allergy status to other antibiotic agents; K64.0 First degree hemorrhoids
CPT/HCPCS: 88305; 45380; J2001; J2704; 45378

== ENCOUNTER → 2021-06-10 | Outpatient (CLI) | payer OTHER ==
[2021-06-10 13:39] VITALS: BMI 44.4
== END ==
LOC: BARWHC3 08:27
PROVIDERS: ATTEND Surgery Plastic and Reconstructive Surgery
DX: E66.01 Morbid (severe) obesity due to excess calories (principal); Z71.3 Dietary counseling and surveillance; Z68.41 Body mass index [BMI] 40.0-44.9, adult; Z87.891 Personal history of nicotine dependence; Z88.1 Allergy status to other antibiotic agents
CPT/HCPCS: 97804

== ENCOUNTER → 2021-07-02 | Outpatient (CLI) | payer OTHER ==
--- NOTE | 2021-07-02 13:09 | XR ---
EXAMINATION TYPE: XR chest 1V DATE OF EXAM: 07/02/2021 HISTORY: Shortness of breath. COMPARISON: None. TECHNIQUE: Single view of the chest is submitted. FINDINGS: Demonstrated are scattered senescent parenchymal change. There is no evidence for focal infiltrate. Suspect small right-sided pleural effusion with blunting n oted at the costophrenic angle. The heart is stable. Hilar and mediastinal structures are within normal limits. Degenerative changes are seen of the dorsal spine. IMPRESSION: 1. Suspect small right-sided pleural effusion with blunting noted at the costophrenic angle.
[2021-07-03 13:36] LABS: Anabasine Urine <2.0 ng/mL (<2.0)
== END | disposition home or self-care (01) ==
LOC: LABWHC1 12:30
PROVIDERS: ATTEND Surgery Plastic and Reconstructive Surgery
DX: G47.30 Sleep apnea, unspecified (principal); R06.02 Shortness of breath; Z71.51 Drug abuse counseling and surveillance of drug abuser
CPT/HCPCS: 80307; 71045; G0480; G0482; 80323

== ENCOUNTER → 2021-08-06 | Outpatient (CLI) | payer OTHER ==
[2021-08-06 16:05] LABS: Partial Thromboplastin Time 25.7 sec (22.0-30.0); Prothrombin Time 10.5 sec (9.0-12.0)
[2021-08-06 23:06] LABS: HCT 39.5 % (37.2-46.3); HGB 12.6 g/dL (12.0-15.0); MCH 29.4 pg (27.0-32.0); MCHC 31.9 g/dL (32.0-37.0); MCV 92.1 fL (80.0-97.0); Mean Platelet Volume 10.1 fL (9.5-12.2); Platelet Count 377 X 10*3/uL (140-440); RBC 4.29 X 10*6/uL (4.10-5.20); RDW 14.6 % (11.5-14.5); WBC 8.21 X 10*3/uL (4.50-10.00)
[2021-08-07 02:17] LABS: % Iron Saturation 12.71 (12.00-45.00); ALT 21 U/L (8-44); AST 19 U/L (13-35); African American GFR (CKD) 117.7 (60.0-200.0); Albumin 4.2 g/dL (3.8-4.9); Albumin/Globulin Ratio 1.55 (1.60-3.17); Alkaline Phosphatase 77 U/L (41-126); BUN/Creat Ratio 26.48 Ratio (12.00-20.00); Blood Urea Nitrogen 15.7 mg/dL (9.0-27.0); Calcium 9.1 mg/dL (8.7-10.3); Carbon Dioxide 25.4 mmol/L (20.0-27.5); Chloride 104 mmol/L (96-109); Chol/HDL Ratio 3.66 Ratio; Ferritin 70.4 ng/mL (10.0-291.0); Globulin 2.7 g/dL (1.6-3.3); Glucose 106 mg/dL (70-110); Iron 37 ug/dL (50-170); LDL Cholesterol,Calculated 72.7 mg/dL (0.0-131.0); Non-African American GFR(CKD) 101.6 (60.0-200.0); Phosphorus 4.3 mg/dL (2.4-5.1); Prealbumin 13.8 mg/dL (18.0-42.0); Sodium 142 mmol/L (135-145); Total Iron Binding Capacity 293 ug/dL (228-460); Total Protein 6.9 g/dL (6.2-8.2)
[2021-08-07 11:20] LABS: Zinc, Serum 67 ug/dL (60-130)
[2021-08-08 05:59] LABS: Vitamin A 35 ug/dL (38-106)
[2021-08-08 06:07] LABS: Vit B1(Thiamine) 89 ug/L (38-122)
== END | disposition home or self-care (01) ==
LOC: LABWHC1 14:59
PROVIDERS: ATTEND Surgery Plastic and Reconstructive Surgery
DX: E55.9 Vitamin D deficiency, unspecified (principal); E89.1 Postprocedural hypoinsulinemia; E44.0 Moderate protein-calorie malnutrition; D50.8 Other iron deficiency anemias; N19 Unspecified kidney failure; K74.1 Hepatic sclerosis; K50.90 Crohn's disease, unspecified, without complications
CPT/HCPCS: 36415; 80053; 80061; 82306; 82525; 82607; 82728; 82746; 83036; 83540; 83550; 83735; 83970; 84100; 84134; 84255; 84425; 84443; 84590; 84630; 85027; 85610; 85730

== ENCOUNTER 2021-09-13 12:50 | Inpatient (IN) | payer OTHER ==
[2021-10-14] MEDS ORDERED: CLINDAMYCIN 900 MG in DEXTROSE 5% IN WATER 50 ML IVPB PRN ×2 (05:00)
[2021-10-14] MEDS ORDERED: GENTAMICIN 360 MG in SODIUM CHLORIDE 0.9% 100 ML IVPB PRN (05:00)
[2021-10-14] MEDS ORDERED: PANTOPRAZOLE 40 MG/10 ML VIAL IVP PRN (07:00)
[2021-10-14] MEDS ORDERED: CHLORHEXIDINE GLUCONATE 15 ML CUP MUCOUS MEM PRN (07:00)
[2021-10-14] MEDS ORDERED: ENOXAPARIN 40 MG/0.4 ML SYRINGE SQ PRN (07:00)
[2021-10-14] MEDS ORDERED: SCOPOLAMINE 1.5MG/72HR PATCH TRANSDERM PRN (08:38)
[2021-10-14] MEDS ORDERED: ACETAMINOPHEN TAB 500 MG TAB PO PRN ×2 (08:38→16:05)
[2021-10-14] MEDS ORDERED: GABAPENTIN 300 MG CAP PO PRN (08:38)
--- NOTE | 2021-10-14 08:38 | P.GSHP ---
History of Present Illness H&P Date: 10/14/21 CHIEF COMPLAINT: Morbid obesity HISTORY OF PRESENT ILLNESS: Tamiko Dasilva is a 56-year-old female who comes with lifelong morbid obesity. She comes in looking into the sleeve gastrectomy. She completed medical supervised weight loss including cardiac risk assessment. As a result of her morbid obesity, history of hypertensive heart disease including significant osteoarthritis. At height of 5 feet 3 inches, her ideal body weight is 140 pounds. Her previous weight was 258 pounds, BMI 45.9. She comes in 256 pounds from 253 pounds, 3 months ago. She has gained 3 pounds in 3 months. Her body mass index is 45.9 down to 45.5. She is 116 pounds overweight. PAST MEDICAL HISTORY: 1. Morbid obesity due to excess calories 2. Body mass index 45.9 3. Hypertensive heart disease 4. Gastroesophageal reflux disease 5. Osteoarthritis of the knee 6. Sleep apnea. PAST SURGICAL HISTORY: 1. Left total knee replacement HOME MEDICATIONS: Home Medications Medication Instructions Recorded Confirmed Triamterene/Hydrochlorothiazid 1 tab PO DAILY 01/29/16 10/10/20 [Maxzide 37.5-25] Ascorbic Acid [Vitamin C] 500 mg PO DAILY 04/25/20 10/10/20 Calcium Carbonate/Vitamin D3 1 each PO DAILY 04/25/20 10/10/20 [Calcium 600-Vit D3 20 Mcg (800 Iu)] Cetirizine HCl [Zyrtec] 10 mg PO DAILY 04/25/20 10/10/20 Famotidine [Pepcid] 20 mg PO BID PRN 04/25/20 10/10/20 Losartan [Cozaar] 25 mg PO DAILY 04/25/20 10/10/20 Magnesium 250 mg PO DIRECTED 04/25/20 10/10/20 Multivitamins, Thera [Multivitamin 1 tab PO DAILY 04/25/20 10/10/20 (formulary)] Naproxen 500 mg PO DAILY PRN 04/25/20 10/10/20 Zinc 50 mg PO DAILY 04/25/20 10/10/20 hydrOXYzine HCL [Atarax] 50 mg PO HS 04/25/20 10/10/20 Acetaminophen [Tylenol Extra 1,000 mg PO Q6H PRN 07/06/20 10/10/20 Strength] Biotin 20,000 mcg PO DAILY 07/06/20 10/10/20 Cyclobenzaprine [Flexeril] 10 mg PO Q12H 07/06/20 10/10/20 Ferrous Sulfate [Iron (65 MG 325 mg PO DAILY 07/06/20 10/10/20 Elemental)] HYDROcodone/APAP 5-325MG [[place] 1 tab PO Q6HR PRN 07/06/20 10/10/20 5-325] Ibuprofen [Motrin Ib] 600 - 800 mg PO Q8H PRN 07/06/20 10/10/20 Previous Rx's Medication Instructions Recorded metroNIDAZOLE [Flagyl] 500 mg PO TID #30 tab 10/10/20 ALLERGIES: Allergies Allergy/AdvReac Type Severity Reaction Status Date / Time cephalexin monohydrate Allergy Unknown Verified 10/10/20 16:11 [From CarFin] SOCIAL HISTORY: Past tobacco use. FAMILY HISTORY: No family history of ulcerative colitis disease or Crohn's disease. Family history of morbid obesity. No lupus in the family. No reports of stomach or esophageal cancer. REVIEW OF ORGAN SYSTEMS: CONSTITUTIONAL: At height of 5 feet 3 inches, her ideal body weight is 140 pounds. She was 258 pounds. Her body mass index is 45.8. She is 118 pounds ove [facility]. HEENT: Denies any active troubles with vision or hearing. ENDOCRINE: Denies diabetes. No hypothyroidism. CARDIOVASCULAR: Denies past reports of palpitations or heart attacks or chest pain. RESPIRATORY: Has daytime somnolence. No asthma. Has sleep apnea. GASTROINTESTINAL: Denies any bright red blood per rectum. No diarrhea. No constipation. Has gastroesophageal reflux disease. MUSCULOSKELETAL: Has lower back pain and joint pain. Has osteoarthritis of the knees. NEURO: No headaches. No seizure disorders. PSYCH: Has depression. No suicidal ideation. RHEUMATOLOGIC: No lupus. No rheumatoid arthritis. HEMATOLOGIC: Denies any abnormal bleeding or bruising. No personal history of DVTs. SKIN: No rash. No skin cancer. PHYSICAL EXAM: VITAL SIGNS: Height 5 foot 3 inches, weight 256 pounds. BMI 45.5 GENERAL: Well-developed in no acute distress. HEENT: No scleral icterus. Extraocular movements grossly intact. Hears conversational speech. No nasal drainage. NECK: Supple without lymphadenopathy. CHEST: Nonlabored respirations with equal bilateral excursions. CARDIOVASCULAR: Regular rate and regular rhythm. Distal 2+ pulses. ABDOMEN: Obese, soft, nontender, nondistended. MUSCULOSKELETAL: No clubbing, cyanosis. NEURO: No focal or lateralizing signs. Cranial nerves 2 through 12 grossly within normal limits. PSYCH: Appropriate affect. Alert and oriented to person, place and time. SKIN: Good skin turgor. Well perfused. ASSESSMENT: 1. Morbid obesity due to excess calories 2. Body mass index 45.9 to 45.5 3. Hypertensive heart disease 4. Gastroesophageal reflux disease 5. Osteoarthritis of the knee 6. Gallbladder disorder 7. Colitis 8. Severe obstructive sleep apnea 9. Sigmoid diverticulosis PLAN: 1. Bariatric options between a sleeve, band and a Steve-en-Y gastric bypass were reviewed in detail. The patient elected for a sleeve gastrectomy. Robotic assisted approach described. 2. The [place] [facility] Data was also reviewed with benefits and risks as described. 3. An 8 page second-generation bariatric consent form was reviewed in detail including potential of bleeding, infection, leaks, adequate weight loss, nutritional deficiencies which the patient demonstrated understanding of the risks. 4. A 2 week high-protein low caloric 800 kcal diet described to address hepatomegaly. 5. Preoperative labs including complete metabolic panel and CBC with type and screen recommended. 6. DVT prophylaxis per [place] [facility]. 7. Antibiotic prophylaxis. 8. Inpatient hospitalization anticipated for more than 2 nights. 9. All questions and concerns were addressed with the patient. 10. Overall, patient has expressed understanding of bariatric care including postoperative diet and commitment of lifestyle. Patient should benefit from surgical intervention for correction of her morbid obesity. 11. NSQIP reviewed Past Medical History Past Medical History: GERD/Reflux, Hypertension, Rheumatoid Arthritis (RA), Sleep Apnea/CPAP/BIPAP Additional Past Medical History / Comment(s): hx migraines, colitis, History of Any Multi-Drug Resistant Organisms: MRSA Date of last positivie culture/infection: 2016 MDRO Source:: lower abdomen Past Surgical History: Joint Replacement, Orthopedic Surgery, Tonsillectomy, Tubal Ligation Additional Past Surgical History / Comment(s): uma knee replacements, [place] noscopy, arthroscopy left knee Past Anesthesia/Blood Transfusion Reactions: No Reported Reaction Smoking Status: Former smoker - Past Family History Father Family Medical History: Cancer Additional Family Medical History / Comment(s): Prostate CA Mother Family Medical History: Hypertension Brother(s) Family Medical History: Cancer Additional Family Medical History / Comment(s): pancreatic cancer Medications and Allergies Home Medications Medication Instructions Recorded Confirmed Type Triamterene/Hydrochlorothiazid 1 tab PO DAILY 01/29/16 10/11/21 History [Maxzide 37.5-25] Ascorbic Acid [Vitamin C] 500 mg PO DAILY 04/25/20 10/11/21 History Calcium Carbonate/Vitamin D3 1 each PO DAILY 04/25/20 10/11/21 History [Calcium 600-Vit D3 20 Mcg (800 Iu)] Losartan [Cozaar] 25 mg PO DAILY 04/25/20 10/11/21 History Multivitamins, Thera [Multivitamin 1 tab PO DAILY 04/25/20 10/11/21 History (formulary)] Zinc 50 mg PO DAILY 04/25/20 10/11/21 History Acetaminophen [Tylenol Extra 1,000 mg PO Q6H PRN 07/06/20 10/11/21 History Strength] Biotin 20,000 mcg PO DAILY 07/06/20 10/11/21 History Ferrous Sulfate [Iron (65 MG 325 mg PO DAILY 07/06/20 10/11/21 History Elemental)] Ibuprofen [Motrin Ib] 600 - 800 mg PO Q8H PRN 07/06/20 10/11/21 History Loratadine 10 mg PO DAILY 05/13/21 10/11/21 History Levocetirizine Dihydrochloride 5 mg PO QAM 10/11/21 10/11/21 History [Xyzal] Mesalamine [Lialda] 4.8 gm PO W/SUPPER 10/11/21 10/11/21 History Allergies Allergy/AdvReac Type Severity Reaction Status Date / Time cephalexin monohydrate Allergy Rash/Hives/ Verified 10/11/21 08:32 [From Keflex] itching
[2021-10-14] MEDS ORDERED: DEXAMETHASONE SOD PHOSPHATE 4 MG/ML 1 ML VIAL IV ONE (10:49)
[2021-10-14] MEDS ORDERED: HYDROmorphone 0.5 MG/0.5 ML SYRINGE IVP PRN (10:49)
[2021-10-14] MEDS ORDERED: ONDANSETRON 4 MG/2 ML VIAL IVP ONE (10:49)
[2021-10-14 11:30] LABS: Glucose,Whole Blood 94 mg/dL (75-99)
[2021-10-14] MEDS: LACTATED RINGERS 1,000 ML IV SCH (11:39)
[2021-10-14] MEDS ORDERED: PROPOFOL 10 MG/ML 20 ML VIAL IV ONE (14:15)
[2021-10-14] MEDS ORDERED: fentaNYL (PF) 50 MCG/ML 2 ML AMP ONE (14:15)
[2021-10-14] MEDS ORDERED: SUCCINYLCHOLINE CHLORIDE VIAL 200 MG/10 ML VIAL IV ONE (14:15)
[2021-10-14] MEDS ORDERED: LIDOCAINE 1% INJ 10MG/ML (20 ML MDV) ONE (14:15)
[2021-10-14] MEDS ORDERED: HYDROmorphone (PF) 1 MG/ML ONE (14:15)
[2021-10-14] MEDS ORDERED: ROCURONIUM 10 MG/ML (5 ML VIAL) IV ONE (14:15)
[2021-10-14] MEDS ORDERED: NEOSTIGMINE 1 MG/ML 10 ML VIAL ONE (14:15)
[2021-10-14] MEDS ORDERED: GLYCOPYRROLATE 0.2 MG/ML 2 ML VIAL ONE (14:15)
[2021-10-14] MEDS ORDERED: MIDAZOLAM 2 MG/2 ML VIAL ONE (14:15)
[2021-10-14 14:34] LABS: Basophils # (A) 0.1 k/uL (0-0.2); Basophils % (A) 1 %; Eosinophils # (A) 0.1 k/uL (0-0.7); Eosinophils % (A) 1 %; HCT 39.7 % (34.0-46.0); HGB 12.9 gm/dL (11.4-16.0); Lymphocytes # (A) 1.8 k/uL (1.0-4.8); Lymphocytes % (A) 22 %; MCH 29.3 pg (25.0-35.0); MCHC 32.5 g/dL (31.0-37.0); MCV 90.2 fL (80.0-100.0); Mean Platelet Volume 8.5; Monocytes # (A) 0.5 k/uL (0-1.0); Monocytes % (A) 7 %; Neutrophils # (A) 5.6 k/uL (1.3-7.7); Neutrophils % (A) 69 %; Platelet Count 422 k/uL (150-450); RDW 14.3 % (11.5-15.5); WBC 8.1 k/uL (3.8-10.6)
[2021-10-14] MEDS ORDERED: LACTATED RINGERS 1,000 ML IV ONE (14:52)
[2021-10-14] MEDS ORDERED: BUPIVACAIN-EPI 0.25%-1:200,000 30 ML VIAL SQ ONE (14:59)
[2021-10-14] MEDS ORDERED: diphenhydrAMINE 50 MG/ML 1 ML VIAL IVP PRN (16:06)
[2021-10-14] MEDS ORDERED: NALOXONE 0.4 MG/ML 1 ML VIAL IV PRN (16:06)
[2021-10-14] MEDS ORDERED: HYDROmorphone 1 MG/ML 1 ML SYRINGE IVP PRN (16:06)
[2021-10-14] MEDS ORDERED: HYDROmorphone 1 MG/ML 1 ML SYRINGE IVP ONE ×2 (16:19→16:26)
--- NOTE | 2021-10-14 16:25 | P.OP ---
Date of Procedure: 10/14/21 Description of Procedure: SURGEON: DARRIUS LI MD PREOPERATIVE DIAGNOSES: 1. Morbid obesity due to excess calories 2. Body mass index 45.9 to 41.2 3. Hypertensive heart disease 4. Gastroesophageal reflux disease 5. Osteoarthritis of the knee 6. Gallbladder disorder 7. Ulcerative colitis 8. Severe obstructive sleep apnea 9. Sigmoid diverticulosis POSTOPERATIVE DIAGNOSES: 1. Morbid obesity due to excess calories 2. Body mass index 45.9 to 41.2 3. Hypertensive heart disease 4. Gastroesophageal reflux disease 5. Osteoarthritis of the knee 6. Gallbladder disorder 7. Ulcerative colitis 8. Severe obstructive sleep apnea 9. Sigmoid diverticulosis OPERATION: 1. Robotic assisted daVinci Xi laparoscopic sleeve gastrectomy with 40-Kenyan bougie, multiport. 2. Intraoperative esophagogastroduodenoscopy. ANESTHESIA: Gen. local anesthetic ESTIMATED BLOOD LOSS: 10 mL SPECIMENS REMOVED: Sleeve gastrectomy COMPLICATIONS: None. FINDINGS: 1. Negative intraoperative esophagogastrojejunoscopy leak test. 2. No hepatomegaly and no large hiatus hernia. 3. Total of 7 staplers used including 2 - 60 mm black robot deborah and 5 - 60 mm green robot loads used to create the gastric sleeve. 4. Sleeve gastrectomy, 27 x 4.5 cm 5. Excessive bleeding along skin incisions from recent NSAID use prohibiting additional anticoagulation INDICATIONS: Tamiko Dasilva is a 56-year-old female who comes with lifelong morbid obesity. She comes in looking into the sleeve gastrectomy. She completed medical supervised weight loss including cardiac risk assessment. As a result of her morbid obesity, history of hypertensive heart disease including significant osteoarthritis. At height of 5 feet 3 inches, her ideal body weight is 140 pounds. Her previous weight was 258 pounds, BMI 45.9. She comes in 232 pounds from prior 256 pounds. She has lost 24 pounds. Her body mass index is 45.9 down to 41.2. She is 92 pounds overweight. All surgical options for morbid obesity had been described using the [place] bariatric surgery collaborative comorbidity resolution including complication risk score. A second-generation bariatric consent form was described in detail including the possibility of protein malnutrition, leaks, gastric stricture, venous thrombosis, gastroesophageal reflux disease, need for further surgery for which she demonstrated understanding. Benefits and risks of the procedure were described at length. Informed consent was obtained. DESCRIPTION: The patient was brought into the operating room theater. Preoperatively she had received Lovenox subcutaneously for DVT prophylaxis. Additionally she had Peridex oral solution as an oral decontaminant. After general induction, the abdomen was prepped and draped in standard sterile fashion. An Ioban draping was placed along the abdomen. A robotic da Lexie Xi system was prepped and primed. At 12 cm from the xiphoid, proposed port sites were marked with indelible marker along the anterior axillary line bilaterally, mid axillary line bilaterally with each ports were marked 10 to 15 cm from each other. The robotic stapler port was marked for the right midclavicular line. Moderate oozing was identified along her skin incisions throughout the case. A 5 mm 0 degrees laparoscopic trocar entry was performed along the left upper quadrant. The abdomen was insufflated to 15 mmHg pressure was tolerated well. Diagnostic laparoscopy demonstrated no injury to bowel, viscera, or mesentery. No evidence of large hiatus hernia was identified. The liver edge was sharp consistent with 2 week low-carb high-protein diet. A 8 mm port was placed along the left upper abdominal wall after exchanging the 5 mm port. A separate 8 mm port was placed along the left lateral abdominal wall. Please note that the ports were placed at least 20 cm away from the target anatomy. Care was taken to check each robotic arms were safely away from collision with the bed or the patient. At the epigastrium, a medium sized Gamal liver retractor was placed under direct visualization with the Iron Vehicle Service Agent placed under the right shoulder of the patient. Next, 12-mm robot stapler port was placed along the right upper quadrant. The camera 8-mm port was maintained along the epigastrium. The patient was repositioned in reverse Trendelenburg position at 21-degrees after lowering the bed. The robot was docked along the left side of the patient. Using a grasper for arm 1, a vessel sealer for arm 3, including grasper for arm 4, the robotic system was docked and primed as described. Instruments were interchanged by the language assistant for stapler loads. The camera was placed at 30- degrees down. I had sat at the console. The pylorus was identified and 6 cm proximally along the greater curvature of the stomach, the short gastrics were mobilized upwards to the angle of His using a vessel sealer. Hemostasis was excellent during this portion of the procedure. Next, the upper pole of the stomach was adherent to the left rk, which was gently dissected free using atraumatic grasper. I went to the head of the bed and placed 40-Kenyan blunt bougie into the stomach. The bougie was readjusted by the nurse vineyard supervisor. Robotic stapler green load 60 mm 2 followed by blue 60 mm x 5 loads were used to create the sleeve. Initial firing was across the antrum of the stomach towards the angle of His. The staple line was linear without corkscrewing. The space from the angularis incisura of the sleeve was approximately 4 cm. I then went to the head of the bed to perform the intraoperative esophagogastroduodenoscopy leak test. The bougie was withdrawn. The upper pole of the stomach was bathed using normal saline solution. The scope was withdrawn with careful inspection along the staple line for which no leaks were found along the entire length. Additionally,the sleeve was completely hemostatic without any encroachment along the angularis incisura. Its topology was a soft "J". No stricture was encountered upon placement of the scope. The GI tract was desufflated. The patient tolerated this portion of the procedure well. The scope was completely withdrawn. The robot was undocked. I then rescrubbed into case, whereby the irrigation fluid was aspirated from the abdominal cavity. Tisseel fibrin sealant was placed along the entire staple length. Once dried the Gamal liver retractor was removed. Attention was now brought to removal of the specimen. The distal end of the sle mayur gastrectomy specimen was brought out through the 12 mm port at the left upper quadrant. The specimen was gently removed en total. No contamination had occurred during this process. All instruments and pneumoperitoneum including irrigation fluid was removed from the abdominal cavity. The 12 mm port site was closed using 0-Vicryl and Wily Morales and irrigated with diluted hydrogen peroxide. The final incisions were closed using subcuticular interrupted suture of 4-0 Monocryl. Exofin was applied to the skin once the skin had been cleansed. OptiFoam dressing was placed along the stomach extraction site. The sleeve specimen was measured and checked also for leaks which none were found. At the end of the procedure, needle, sponge, and instrument count was verified correct by the surgical processor. The patient was taken to the postanesthesia care unit in stable condition. She had tolerated the procedure well.
[2021-10-14] MEDS ORDERED: HYDROmorphone 0.5 MG/0.5 ML SYRINGE IVP ONE (16:52)
[2021-10-14] MEDS: SODIUM CHLORIDE 0.9% 1,000 ML IV SCH (17:39)
[2021-10-14] MEDS: METOCLOPRAMIDE 5 MG/ML 2 ML VIAL IVP SCH ×2 (17:42→23:56)
[2021-10-14] MEDS: ONDANSETRON 4 MG/2 ML VIAL IVP SCH ×2 (17:57→23:56)
[2021-10-14] MEDS: ACETAMINOPHEN IV (For NPO) 1,000 MG in EMPTY BAG 1 BAG IVPB SCH ×2 (17:58→23:56)
[2021-10-14] MEDS: SIMETHICONE 40 MG/0.6 ML DROPS 2,000 MG/30 ML BOTTLE PO SCH ×2 (18:43→23:58)
[2021-10-14] MEDS: HYOSCYAMINE ORAL DROPS 1.875 MG/15 ML BOTTLE PO SCH ×2 (18:43→23:57)
[2021-10-14] MEDS ORDERED: DEXAMETHASONE SOD PHOSPHATE 10 MG/ML 1 ML VIAL IVP ONE (20:00)
[2021-10-14] MEDS: PANTOPRAZOLE 40 MG/10 ML VIAL IV SCH (20:28)
[2021-10-14] MEDS: ALBUTEROL NEBULIZED 2.5 MG/3 ML INHALATION SCH (20:32)
[2021-10-14] MEDS: CLINDAMYCIN 900 MG in DEXTROSE 5% IN WATER 50 ML IVPB SCH ×2 (23:57)
[2021-10-15] MEDS: SODIUM CHLORIDE 0.9% 1,000 ML IV SCH ×4 (00:11→12:26)
[2021-10-15] MEDS: DEXAMETHASONE SOD PHOSPHATE 4 MG/ML 1 ML VIAL IVP SCH ×3 (01:51→16:15)
[2021-10-15 04:28] VITALS: RESP 17
[2021-10-15] MEDS: ACETAMINOPHEN IV (For NPO) 1,000 MG in EMPTY BAG 1 BAG IVPB SCH ×2 (05:25→12:25)
[2021-10-15] MEDS: CLINDAMYCIN 900 MG in DEXTROSE 5% IN WATER 50 ML IVPB SCH ×2 (05:26)
[2021-10-15] MEDS: METOCLOPRAMIDE 5 MG/ML 2 ML VIAL IVP SCH ×2 (05:26→12:24)
[2021-10-15] MEDS: ONDANSETRON 4 MG/2 ML VIAL IVP SCH ×2 (05:26→12:24)
[2021-10-15] MEDS: HYOSCYAMINE ORAL DROPS 1.875 MG/15 ML BOTTLE PO SCH ×2 (05:28→12:26)
[2021-10-15] MEDS: SIMETHICONE 40 MG/0.6 ML DROPS 2,000 MG/30 ML BOTTLE PO SCH ×2 (05:28→12:26)
[2021-10-15] MEDS: PANTOPRAZOLE 40 MG/10 ML VIAL IV SCH (08:09)
[2021-10-15] MEDS: LACTATED RINGERS 1,000 ML IV SCH (08:14)
[2021-10-15] MEDS ORDERED: TRIAMTERENE-HCTZ 37.5-25MG 1 EACH TAB PO SCH (09:00)
[2021-10-15] MEDS ORDERED: LOSARTAN 25 MG TAB PO SCH (09:00)
[2021-10-15] MEDS ORDERED: LORATADINE 10 MG TAB PO SCH ×2 (09:00)
[2021-10-15] MEDS: ALBUTEROL NEBULIZED 2.5 MG/3 ML INHALATION SCH ×3 (09:18→15:57)
[2021-10-15 10:39] LABS: Basophils # (A) 0.01 X 10*3/uL (0.00-0.10); Basophils % (A) 0.1 %; Eosinophils # (A) 0 X 10*3/uL (0.04-0.35); Eosinophils % (A) 0 %; HCT 38.2 % (37.2-46.3); Immature Grans, Automated 0.5 %; Lymphocytes # (A) 0.85 X 10*3/uL (0.90-5.00); Lymphocytes % (A) 9.6 %; MCH 28.2 pg (27.0-32.0); MCHC 31.4 g/dL (32.0-37.0); MCV 89.9 fL (80.0-97.0); Monocytes # (A) 0.26 X 10*3/uL (0.20-1.00); Monocytes % (A) 2.9 %; NRBC Per 100 WBC 0 /100 WBCS (0.0-0.0); Neutrophils % (A) 86.9 %; Platelet Count 396 X 10*3/uL (140-440); RBC 4.25 X 10*6/uL (4.10-5.20); RDW 14.6 % (11.5-14.5); WBC 8.86 X 10*3/uL (4.50-10.00)
[2021-10-15 10:49] LABS: African American GFR (CKD) 124.5 (60.0-200.0); Anion Gap 14.2 mmol/L (10.00-18.00); Blood Urea Nitrogen 12.6 mg/dL (9.0-27.0); Calcium 8.5 mg/dL (8.7-10.3); Carbon Dioxide 22.8 mmol/L (20.0-27.5); Non-African American GFR(CKD) 107.4 (60.0-200.0); Phosphorus 3.3 mg/dL (2.4-5.1); Potassium 3.8 mmol/L (3.5-5.5)
[2021-10-15 10:50] LABS: Magnesium 2.1 mg/dL (1.5-2.4)
--- NOTE | 2021-10-15 11:34 | FL ---
SINGLE CONTRAST UPPER GI EXAMINATION: CLINICAL HISTORY: 56-year-old female postop bariatric surgery, sleeve gastrectomy. TECHNIQUE: Single contrast exam performed with 40 ml Isovue-370 contrast. Total fluoroscopy time: 2 minutes 26 seconds. Total images: 55. FINDINGS: The patient swallowed oral contrast without difficulty or delay. Esophageal peristalsis and motility are within normal limits. There is some focal rightward deviation of the proximal third thoracic es ophagus secondary to the aortic knob. There is prompt passage of contrast from the esophagus into the stomach. Along the mid body, there is a segment of string-like narrowing initially with very limited passage of contrast. Present of the s tudy, there is a greater degree of visualized contrast traversing this narrowed segment of the gastri c body. Initial mild accumulation of contrast within the distal esophagus due to the relative obstruc tion. There is no evidence of contrast extravasation to suggest leak. No postsurgical free air seen. IMPRESSION: 1. Status post sleeve gastrectomy. Initial string-like narrowing along the mid gastric body which onl y slightly improves towards the end of the exam. Relative moderate obstruction here likely due to pos toperative edema. Follow-up as clinically indicated. Recommend caution when advancing the patient's d iet. 2. No evidence for leak.
[2021-10-15 12:38] VITALS: BMI 41.2
--- NOTE | 2021-10-15 12:48 | P.PN ---
Subjective Progress Note Date: 10/15/21 CHIEF COMPLAINT: Morbid obesity status post laparoscopic sleeve gastrectomy HISTORY OF PRESENT ILLNESS: 56-year-old female presented with lifelong morbid obesity who is postop day #1 for laparoscopic sleeve gastrectomy. Postoperatively she has been ambulating and using incentive spirometer. Her pain has been well-controlled. She is denying any nausea or vomiting. Abdominal Binder is in place. She denies passing flatus or bowel movement. She underwent upper GI series that reported post sleeve gastrectomy. Initial string-like narrowing along the mid gastric body which only slightly improves toward the end of the exam, relative moderate obstruction here likely due to postoperative edema. No evidence for leak. PHYSICAL EXAM: VITAL SIGNS: Reviewed GENERAL: Well-developed in no acute distress. HEENT: No sclera icterus. Extraocular movements grossly intact. Moist buccal mucosa. Head is atraumatic, normocephalic. Hears conversational speech. No nasal drainage. NECK: Supple without lymphadenopathy. CHEST: Non-labored respirations and equal bilateral excursions. CARDIOVASCULAR: Palpable 2+ radial pulses. ABDOMEN: Soft. Nondistended. Mild surgical tenderness. Incisions clean dry and intact. Well approximated. Positive bowel sounds. MUSCULOSKELETAL: No clubbing or cyanosis. NEUROLOGIC: No focal or lateralizing signs. Cranial nerves II through XII grossly intact. PSYCH: Appropriate affect. Alert and oriented to person, place and time. SKIN: Well perfused. Good skin turgor. ASSESSMENT: 1. Postop day #1 status post laparoscopic sleeve gastrectomy 2. Morbid obesity due to excess calories 3. Body mass index 45.9-41.2 4. Hypertensive heart disease 5. Gastroesophageal reflux disease 6. Osteoarthritis of the knee 7. Gallbladder disorder 8. Ulcerative colitis 9. Severe obstructive sleep apnea 10. Sigmoid diverticulosis PLAN: 1. Continue symptomatic and supportive care 2. Upper GI series ordered and reviewed 3. Continue Decadron as ordered 4. Encourage ambulation 5. Continue incentive spirometer 6. Continue with abdominal Binder 7. May start area a clear diet The impression and plan of care has been dictated as directed. Dr. Bernabe I performed a history and examination of this patient, discussed the same with the dictator. I agree with the dictator's note ,documented as a scribe. Any additional findings or plans will be noted. Objective - Vital Signs Vital signs: Vital Signs Temp 97.7 F 10/15/21 07:31 Pulse 76 10/15/21 12:22 Resp 17 10/15/21 02:32 BP 158/73 10/15/21 07:31 Pulse Ox 94 L 10/15/21 07:31 Intake & Output 10/14/21 10/15/21 10/15/21 18:59 06:59 18:59 Intake Total 1914 Output Total 10 Balance 1904 Weight 105.5 kg 105.5 kg Intake: IV 1914 Output: Estimated Blood Loss 10 Other: Voiding Method Toilet # Voids 2 - Labs CBC & Chem 7: 10/15/21 06:47 10/15/21 06:47 Labs: Abnormal Lab Results - Last 24 Hours (Table) 10/15/21 10/15/21 Range/Units 06:47 06:47 MCHC 31.4 L (32.0-37.0) g/dL RDW 14.6 H (11.5-14.5) % Lymphocytes # 0.85 L (0.90-5.00) X 10*3/uL Eosinophils # 0 L (0.04-0.35) X 10*3/uL Creatinine 0.5 L (0.6-1.5) mg/dL Calcium 8.5 L (8.7-10.3) mg/dL
--- NOTE | 2021-10-15 14:25 | P.DS ---
Providers Date of admission: 10/14/21 10:13 Expected date of discharge: 10/15/21 Attending physician: Fela Bernabe Primary care physician: Brian Orellana Hospital Course: Discharge diagnoses: Morbid obesity status post laparoscopic sleeve gastrectomy Hospital course 56-year-old female presented with lifelong morbid obesity who is postop day #1 for laparoscopic sleeve gastrectomy. Postoperatively she has been ambulating and using incentive spirometer. Her pain has been well-controlled. She is denying any nausea or vomiting. Abdominal Binder is in place. She denies passing flatus or bowel movement. She underwent upper GI series that reported post sleeve gastrectomy. Initial string-like narrowing along the mid gastric body which only slightly improves toward the end of the exam, relative moderate obstruction here likely due to postoperative edema. No evidence for leak.She was started on bariatric clear liquid diet and is tolerating that well. She has been afebrile. Prior to discharge laboratory studies and vital signs were satisfactory. OPERATION: 1. Robotic assisted daVinci Xi laparoscopic sleeve gastrectomy with 40-Amharic bougie, multiport. 2. Intraoperative esophagogastroduodenoscopy. ANESTHESIA: Gen. local anesthetic ESTIMATED BLOOD LOSS: 10 mL SPECIMENS REMOVED: Sleeve gastrectomy COMPLICATIONS: None. FINDINGS: 1. Negative intraoperative esophagogastrojejunoscopy leak test. 2. No hepatomegaly and no large hiatus hernia. 3. Total of 7 staplers used including 2 - 60 mm black robot deborah and 5 - 60 mm green robot loads used to create the gastric sleeve. 4. Sleeve gastrectomy, 27 x 4.5 cm 5. Excessive bleeding along skin incisions from recent NSAID use prohibiting additional anticoagulation The impression and plan of care has been dictated as directed. Dr. Bernabe I performed a history and examination of this patient, discussed the same with the dictator. I agree with the dictator's note ,documented as a scribe. Any additional findings or plans will be noted. Patient Condition at Discharge: Stable Plan - Discharge Summary Discharge Rx Participant: Yes New Discharge Prescriptions: No Action Triamterene/Hydrochlorothiazid [Maxzide 37.5-25] 1 tab PO DAILY Zinc 50 mg PO DAILY Multivitamins, Thera [Multivitamin (formulary)] 1 tab PO DAILY Losartan [Cozaar] 25 mg PO DAILY Calcium Carbonate/Vitamin D3 [Calcium 600-Vit D3 20 Mcg (800 Iu)] 1 each PO DAILY Ascorbic Acid [Vitamin C] 500 mg PO DAILY Ibuprofen [Motrin Ib] 600 - 800 mg PO Q8H PRN PRN Reason: PAIN, SWELLING Acetaminophen [Tylenol Extra Strength] 1,000 mg PO Q6H PRN PRN Reason: Pain Biotin 20,000 mcg PO DAILY Ferrous Sulfate [Iron (65 MG Elemental)] 325 mg PO DAILY Mesalamine [Lialda] 4.8 gm PO W/SUPPER Loratadine 10 mg PO DAILY Levocetirizine Dihydrochloride [Xyzal] 5 mg PO QAM Naproxen 500 mg PO BID Discharge Medication List Triamterene/Hydrochlorothiazid [Maxzide 37.5-25] 1 tab PO DAILY 01/29/16 [History] Ascorbic Acid [Vitamin C] 500 mg PO DAILY 04/25/20 [History] Calcium Carbonate/Vitamin D3 [Calcium 600-Vit D3 20 Mcg (800 Iu)] 1 each PO DAILY 04/25/20 [History] Losartan [Cozaar] 25 mg PO DAILY 04/25/20 [History] Multivitamins, Thera [Multivitamin (formulary)] 1 tab PO DAILY 04/25/20 [History] Zinc 50 mg PO DAILY 04/25/20 [History] Acetaminophen [Tylenol Extra Strength] 1,000 mg PO Q6H PRN 07/06/20 [History] Biotin 20,000 mcg PO DAILY 07/06/20 [History] Ferrous Sulfate [Iron (65 MG Elemental)] 325 mg PO DAILY 07/06/20 [History] Ibuprofen [Motrin Ib] 600 - 800 mg PO Q8H PRN 07/06/20 [History] Loratadine 10 mg PO DAILY 05/13/21 [History] Levocetirizine Dihydrochloride [Xyzal] 5 mg PO QAM 10/11/21 [History] Mesalamine [Lialda] 4.8 gm PO W/SUPPER 10/11/21 [History] Naproxen 500 mg PO BID 10/14/21 [History] [facility]Ref[facility] [facility] [place] [place] [facility] [place] [facility] Patient Instructions/Handouts: Nutrition after Bariatric Surgery (DC), Laparoscopic Sleeve Gastrectomy (DC) Activity/Diet/Wound Care/Special Instructions: Liquid diet only for 2 weeks May Shower. No soaking in bath tubs 2 weeks Continue to use incentive spirometry to prevent pneumonias. Please continue to ambulate at home to prevent blood clots in legs. Please notify your surgeon if you develop nausea and vomiting including new onset of abdominal pain. No lifting over 4 pounds in 4 weeks, Drink 64 oz of fluid daily. Start protein shakes on . Notify bariatric center for temp over 101.0, increased pain, drainage from incisions. No straws or carbonated beverages. Liquid diet only. Sugar content should be less than 6 g to avoid dumping syndrome. Take MOM for constipation. CRUSH, OPEN, OR CUT TABLETS LARGER THAN A SIZE OF A TIC TAC Discharge Disposition: HOME SELF-CARE
[2021-10-15 15:13] VITALS: BP 154/69; TEMP 98.5
[2021-10-15 16:06] VITALS: PULSE 89
== END 2021-10-15 18:11 | disposition home or self-care (01) | DRG 620 ==
LOC: 2ORMAIN 10-14 10:13 → 4SSUR 10-14 17:02
PROVIDERS: ADMIT Surgery Plastic and Reconstructive Surgery; ATTEND Surgery Plastic and Reconstructive Surgery
PROC: 0DB64Z3 Excision of Stomach, Percutaneous Endoscopic Approach, Vertical (ICD-10-PCS; principal; 2021-10-14 11:50)
PROC: 0DJ08ZZ Inspection of Upper Intestinal Tract, Via Natural or Artificial Opening Endoscopic (ICD-10-PCS; principal; 2021-10-14 11:50)
PROC: 8E0W4CZ Robotic Assisted Procedure of Trunk Region, Percutaneous Endoscopic Approach (ICD-10-PCS; principal; 2021-10-14 11:50)
DX: E66.01 Morbid (severe) obesity due to excess calories (principal); K51.90 Ulcerative colitis, unspecified, without complications; Z68.42 Body mass index [BMI] 45.0-49.9, adult; I11.9 Hypertensive heart disease without heart failure; M06.9 Rheumatoid arthritis, unspecified; G47.33 Obstructive sleep apnea (adult) (pediatric); K82.9 Disease of gallbladder, unspecified; K57.30 Diverticulosis of large intestine without perforation or abscess without bleeding; G43.909 Migraine, unspecified, not intractable, without status migrainosus; M19.90 Unspecified osteoarthritis, unspecified site; K21.9 Gastro-esophageal reflux disease without esophagitis; R58 Hemorrhage, not elsewhere classified; T39.395A Adverse effect of other nonsteroidal anti-inflammatory drugs [NSAID], initial encounter; Z79.1 Long term (current) use of non-steroidal anti-inflammatories (NSAID); Z79.899 Other long term (current) drug therapy; Z96.653 Presence of artificial knee joint, bilateral; Z87.891 Personal history of nicotine dependence; Z86.14 Personal history of Methicillin resistant Staphylococcus aureus infection; Z88.1 Allergy status to other antibiotic agents; Z82.49 Family history of ischemic heart disease and other diseases of the circulatory system; Z80.0 Family history of malignant neoplasm of digestive organs; Z80.42 Family history of malignant neoplasm of prostate
CPT/HCPCS: 74240; 80051; 82310; 82565; 83735; 84100; 84520; 85025; 86850; 86900; 86901; 88307; 88342; 94640

== ENCOUNTER → 2021-09-25 | Outpatient (CLI) | payer OTHER ==
[2021-09-25 15:03] VITALS: BP 163/82; PULSE 97; RESP 16; TEMP 98.2; BMI 34.5
--- NOTE | 2021-09-25 15:09 | P.BASOAP ---
Subjective Progress Note Date: 09/25/21 DATE OF SERVICE: 09/25/2021 CHIEF COMPLAINT: Morbid obesity HISTORY OF PRESENT ILLNESS: Tamiko Dasilva is a 56-year-old female who comes with lifelong morbid obesity. She comes in looking into the sleeve gastrectomy. She has completed medical supervised weight loss. She has ulcerative colitis. At height of 5 feet 3 inches, her ideal body weight is 140 pounds. Her weight was 258 pounds, BMI 45.9. She comes in 232 pounds from 250 pounds, 4 months ago. She has lost 18 pounds in 4 months. Her body mass index is 45.9 down to 41.2. She is 92 pounds overweight. PAST MEDICAL HISTORY: 1. Morbid obesity due to excess calories 2. Body mass index 45.9 3. Hypertensive heart disease 4. Gastroesophageal reflux disease 5. Osteoarthritis of the knee 6. Sleep apnea. 7. Ulcerative colitis PAST SURGICAL HISTORY: 1. Left total knee replacement 2. EGD 3. Colonoscopy HOME MEDICATIONS: Home Medications Medication Instructions Recorded Confirmed Triamterene/Hydrochlorothiazid 1 tab PO DAILY 01/29/16 10/10/20 [Maxzide 37.5-25] Ascorbic Acid [Vitamin C] 500 mg PO DAILY 04/25/20 10/10/20 Calcium Carbonate/Vitamin D3 1 each PO DAILY 04/25/20 10/10/20 [Calcium 600-Vit D3 20 Mcg (800 Iu)] Cetirizine HCl [Zyrtec] 10 mg PO DAILY 04/25/20 10/10/20 Famotidine [Pepcid] 20 mg PO BID PRN 04/25/20 10/10/20 Losartan [Cozaar] 25 mg PO DAILY 04/25/20 10/10/20 Magnesium 250 mg PO DIRECTED 04/25/20 10/10/20 Multivitamins, Thera [Multivitamin 1 tab PO DAILY 04/25/20 10/10/20 (formulary)] Naproxen 500 mg PO DAILY PRN 04/25/20 10/10/20 Zinc 50 mg PO DAILY 04/25/20 10/10/20 hydrOXYzine HCL [Atarax] 50 mg PO HS 04/25/20 10/10/20 Acetaminophen [Tylenol Extra 1,000 mg PO Q6H PRN 07/06/20 10/10/20 Strength] Biotin 20,000 mcg PO DAILY 07/06/20 10/10/20 Cyclobenzaprine [Flexeril] 10 mg PO Q12H 07/06/20 10/10/20 Ferrous Sulfate [Iron (65 MG 325 mg PO DAILY 07/06/20 10/10/20 Elemental)] HYDROcodone/APAP 5-325MG [[place] 1 tab PO Q6HR PRN 07/06/20 10/10/20 5-325] Ibuprofen [Motrin Ib] 600 - 800 mg PO Q8H PRN 07/06/20 10/10/20 Previous Rx's Medication Instructions Recorded metroNIDAZOLE [Flagyl] 500 mg PO TID #30 tab 10/10/20 ALLERGIES: Allergies Allergy/AdvReac Type Severity Reaction Status Date / Time cephalexin monohydrate Allergy Unknown Verified 10/10/20 16:11 [From VeliQ] SOCIAL HISTORY: Past tobacco use. FAMILY HISTORY: No family history of ulcerative colitis disease or Crohn's dis ease. Family history of morbid obesity. No lupus in the family. No reports of stomach or esophageal cancer. REVIEW OF ORGAN SYSTEMS: CONSTITUTIONAL: HEENT: Denies any active troubles with vision or hearing. ENDOCRINE: Denies diabetes. No hypothyroidism. CARDIOVASCULAR: Denies past reports of palpitations or heart attacks or chest pain. RESPIRATORY: Has daytime somnolence. No asthma. Has sleep apnea. GASTROINTESTINAL: Denies any bright red blood per rectum. No diarrhea. No constipation. Has gastroesophageal reflux disease. MUSCULOSKELETAL: Has lower back pain and joint pain. Has osteoarthritis of the knees. NEURO: No headaches. No seizure disorders. PSYCH: Has depression. No suicidal ideation. RHEUMATOLOGIC: No lupus. No rheumatoid arthritis. HEMATOLOGIC: Denies any abnormal bleeding or bruising. No personal history of DVTs. SKIN: No rash. No skin cancer. PHYSICAL EXAM: VITAL SIGNS: Height 5 foot 3 inches, weight 232 pounds. BMI 41.2 Vital Signs Temp 98.2 F 09/25/21 14:58 Pulse 97 09/25/21 14:58 Resp 16 09/25/21 14:58 BP 163/82 09/25/21 14:58 Pulse Ox GENERAL: Well-developed in no acute distress. HEENT: No scleral icterus. Extraocular movements grossly intact. Hears conversational speech. No nasal drainage. NECK: Supple without lymphadenopathy. CHEST: Nonlabored respirations with equal bilateral excursions. CARDIOVASCULAR: Regular rate and regular rhythm. Distal 2+ pulses. ABDOMEN: Obese, soft, nontender, nondistended. MUSCULOSKELETAL: No clubbing, cyanosis. NEURO: No focal or lateralizing signs. Cranial nerves 2 through 12 grossly within normal limits. PSYCH: Appropriate affect. Alert and oriented to person, place and time. SKIN: Good skin turgor. Well perfused. ASSESSMENT: 1. Morbid obesity due to excess calories 2. Body mass index 45.9 to 41.2 3. Hypertensive heart disease 4. Gastroesophageal reflux disease 5. Osteoarthritis of the knee 6. Gallbladder disorder 7. Ulcerative colitis 8. Severe obstructive sleep apnea 9. Sigmoid diverticulosis 10. Right inguinal hernia 11. Ulcerative colitis PLAN: 1. Bariatric options between a sleeve, band and a Steve-en-Y gastric bypass were reviewed in detail. The patient elected for a sleeve gastrectomy. Robotic assisted approach described. 2. The [place] [facility] Data was also reviewed with benefits and risks as described. 3. An 8 page second-generation bariatric consent form was reviewed in detail including potential of bleeding, infection, leaks, adequate weight loss, nutritional deficiencies which the patient demonstrated understanding of the risks. 4. A 2 week high-protein low caloric 800 kcal diet described to address hepatomegaly. 5. Preoperative labs including complete metabolic panel and CBC with type and screen recommended. 6. DVT prophylaxis per [place] [facility]. 7. Antibiotic prophylaxis. 8. Inpatient hospitalization anticipated for more than 2 nights. 9. All questions and concerns were addressed with the patient. 10. NSQIP calculator reviewed. 11. Overall, patient has expressed understanding of bariatric care including postoperative diet and commitment of lifestyle. Patient should benefit from surgical intervention for correction of her morbid obesity. 12. Recommend 2 week protein diet. 13. She is advised 10 to 15 pounds weight loss. 14. Recommend avoidance of NSAIDs. Objective - Vital Signs Vital signs: Vital Signs Temp 98.2 F 09/25/21 14:58 Pulse 97 09/25/21 14:58 Resp 16 09/25/21 14:58 BP 163/82 09/25/21 14:58 Pulse Ox Intake & Output 09/24/21 09/25/21 09/25/21 18:59 06:59 18:59 Weight 85.729 kg Assessment/Plan Plan: Date: 09/25/21 Initial Weight: 85.729 kg Initial BMI: 34.5 Current Weight: 85.729 kg Current BMI: 34.5 Type of Surgery: Total Volume in Band: Previous Volume: Volume Removed: Volume Added: Band Size:
== END ==
LOC: BARWHC3 13:59
PROVIDERS: ATTEND Surgery Plastic and Reconstructive Surgery
DX: E66.01 Morbid (severe) obesity due to excess calories (principal); Z68.41 Body mass index [BMI] 40.0-44.9, adult; I11.9 Hypertensive heart disease without heart failure; K21.9 Gastro-esophageal reflux disease without esophagitis; M17.10 Unilateral primary osteoarthritis, unspecified knee; K82.9 Disease of gallbladder, unspecified; K51.90 Ulcerative colitis, unspecified, without complications; G47.33 Obstructive sleep apnea (adult) (pediatric); K57.30 Diverticulosis of large intestine without perforation or abscess without bleeding; K40.90 Unilateral inguinal hernia, without obstruction or gangrene, not specified as recurrent; Z88.1 Allergy status to other antibiotic agents; Z87.891 Personal history of nicotine dependence
CPT/HCPCS: 99211

== ENCOUNTER → 2021-10-10 | Outpatient (CLI) | payer OTHER ==
[2021-10-10 18:07] LABS: Basophils # (A) 0.07 X 10*3/uL (0.00-0.10); Basophils % (A) 0.6 %; Eosinophils # (A) 0.13 X 10*3/uL (0.04-0.35); Eosinophils % (A) 1.2 %; HCT 39.1 % (37.2-46.3); HGB 12.3 g/dL (12.0-15.0); Immature Grans, Automated 0.3 %; Lymphocytes # (A) 2.01 X 10*3/uL (0.90-5.00); Lymphocytes % (A) 18.2 %; MCH 28.1 pg (27.0-32.0); MCHC 31.5 g/dL (32.0-37.0); MCV 89.5 fL (80.0-97.0); Mean Platelet Volume 9.7 fL (9.5-12.2); Monocytes # (A) 0.89 X 10*3/uL (0.20-1.00); NRBC Per 100 WBC 0 /100 WBCS (0.0-0.0); Neutrophils # (A) 7.93 X 10*3/uL (1.80-7.70); Neutrophils % (A) 71.7 %; Platelet Count 420 X 10*3/uL (140-440); RBC 4.37 X 10*6/uL (4.10-5.20); RDW 14.5 % (11.5-14.5); WBC 11.06 X 10*3/uL (4.50-10.00)
[2021-10-10 18:13] LABS: African American GFR (CKD) 117.3 (60.0-200.0); Albumin 4.3 g/dL (3.8-4.9); Albumin/Globulin Ratio 1.3 (1.60-3.17); BUN/Creat Ratio 30.33 Ratio (12.00-20.00); Blood Urea Nitrogen 18.2 mg/dL (9.0-27.0); Globulin 3.3 g/dL (1.6-3.3); Non-African American GFR(CKD) 101.2 (60.0-200.0); Potassium 3.6 mmol/L (3.5-5.5); Total Bilirubin 0.3 mg/dL (0.30-1.20); Total Protein 7.6 g/dL (6.2-8.2)
== END | disposition home or self-care (01) ==
LOC: LABPAT 13:40
PROVIDERS: ATTEND Surgery Plastic and Reconstructive Surgery
DX: Z01.812 Encounter for preprocedural laboratory examination (principal)
CPT/HCPCS: 36415; 80053; 85025

== ENCOUNTER → 2021-10-18 | Outpatient (CLI) | payer OTHER ==
--- NOTE | 2021-10-18 09:55 | P.BASOAP ---
Subjective Progress Note Date: 10/18/21 DATE OF SERVICE: 10/18/2021 CHIEF COMPLAINT: Status post sleeve gastrectomy HISTORY OF PRESENT ILLNESS: Tamiko Dasilva is a 56-year-old female status post sleeve gastrectomy, 10/14/21. She is POD 4. She presents in a wheelchair with her . She is tolerating liquids. Her pain is improved. Omeprazole advised. Will intake advised. Follow-up in one week. Abdominal binder continue. No infection. At height of 5 feet 3 inches, her ideal body weight is 140 pounds. Her weight was 258 pounds, BMI 45.9. She comes in 232 pounds from 258 pounds, 1 month ago. She has lost 19 pounds in 1 month. Her body mass index is 45.9 down to 41.1. She is 97 pounds overweight. Lifetime weight loss of 26 pounds. Percent excess weight loss, lifetime 22% PHYSICAL EXAM: VITAL SIGNS: Height 5 foot 3 inches, weight 232 pounds. BMI 41.1 Vital Signs Temp 98.5 F 10/18/21 10:37 Pulse 105 H 10/18/21 10:37 Resp BP 111/80 10/18/21 10:37 Pulse Ox GENERAL: Well-developed in no acute distress. HEENT: No scleral icterus. Extraocular movements grossly intact. Hears conversational speech. No nasal drainage. NECK: Supple without lymphadenopathy. CHEST: Nonlabored respirations with equal bilateral excursions. CARDIOVASCULAR: Tachycardia. Distal 2+ pulses. ABDOMEN: Incisions intact. No infection. Abdominal binder intact. MUSCULOSKELETAL: No clubbing, cyanosis. NEURO: No focal or lateralizing signs. Cranial nerves 2 through 12 grossly within normal limits. PSYCH: Appropriate affect. Alert and oriented to person, place and time. SKIN: Good skin turgor. Well perfused. ASSESSMENT: 1. Morbid obesity due to excess calories 2. Body mass index 45.9 to 41.2 3. Hypertensive heart disease 4. Gastroesophageal reflux disease 5. Osteoarthritis of the knee 6. Gallbladder disorder 7. Ulcerative colitis 8. Severe obstructive sleep apnea 9. Sigmoid diverticulosis 10. Right inguinal hernia 11. Ulcerative colitis 12. Status post sleeve gastrectomy PLAN: 1. Omeprazole advised. 2. Recommend increase fluid intake. 3. Follow-up in one week. Assessment/Plan Plan: Date: Initial Weight: 85.729 kg Initial BMI: Current Weight: Current BMI: Type of Surgery: Total Volume in Band: Previous Volume: Volume Removed: Volume Added: Band Size:
[2021-10-18 10:40] VITALS: BP 111/80; PULSE 105; TEMP 98.5; BMI 41.1
== END ==
LOC: BARWHC3 09:11
PROVIDERS: ATTEND Surgery Plastic and Reconstructive Surgery
DX: E66.01 Morbid (severe) obesity due to excess calories (principal); I11.9 Hypertensive heart disease without heart failure; K21.9 Gastro-esophageal reflux disease without esophagitis; M17.10 Unilateral primary osteoarthritis, unspecified knee; K82.9 Disease of gallbladder, unspecified; K51.90 Ulcerative colitis, unspecified, without complications; G47.33 Obstructive sleep apnea (adult) (pediatric); K57.30 Diverticulosis of large intestine without perforation or abscess without bleeding; K40.90 Unilateral inguinal hernia, without obstruction or gangrene, not specified as recurrent; Z98.84 Bariatric surgery status; Z68.41 Body mass index [BMI] 40.0-44.9, adult; Z87.891 Personal history of nicotine dependence; Z88.1 Allergy status to other antibiotic agents
CPT/HCPCS: 99211

== ENCOUNTER → 2021-10-18 | Outpatient (CLI) | payer OTHER ==
[2021-10-18 09:47] VITALS: BP 118/78; PULSE 105; RESP 16; TEMP 98
[2021-10-18] MEDS: SODIUM CHLORIDE 0.9% 1,000 ML IV SCH ×2 (09:48→10:48)
== END ==
LOC: PROCWHC3 09:36
PROVIDERS: ATTEND Surgery Plastic and Reconstructive Surgery
DX: E86.0 Dehydration (principal); Z88.1 Allergy status to other antibiotic agents; Z87.891 Personal history of nicotine dependence
CPT/HCPCS: 96360; 96361

== ENCOUNTER → 2021-10-23 | Outpatient (CLI) | payer OTHER ==
[2021-10-23 14:43] VITALS: BP 138/69; PULSE 82; RESP 16; TEMP 98.2; BMI 40.4
--- NOTE | 2021-10-23 15:03 | P.BASOAP ---
Subjective Progress Note Date: 10/23/21 DATE OF SERVICE: 10/23/2021 CHIEF COMPLAINT: Status post sleeve gastrectomy HISTORY OF PRESENT ILLNESS: Tamiko Dasilva is a 56-year-old female status post sleeve gastrectomy, 10/14/21. She is 1 week out. She reports trouble with gas after surgery. No gastroesophageal reflux disease. She is looking into keto. She has lost 20 pounds in 1 month from 09/25/21. Indentation on skin is present. She is tolerating diet. At height of 5 feet 3 inches, her ideal body weight is 140 pounds. Her weight was 258 pounds, BMI 45.9. She comes in 228 pounds from 232 pounds, 1 week ago. She has lost 4 pounds in 1 week. Her body mass index is 45.9 down to 40.4. She is 88 pounds overweight. Lifetime weight loss of 30 pounds. Percent excess weight loss, lifetime 26% PHYSICAL EXAM: VITAL SIGNS: Height 5 foot 3 inches, weight 228 pounds. BMI 40.4 Vital Signs Temp 98.2 F 10/23/21 14:40 Pulse 82 10/23/21 14:40 Resp 16 10/23/21 14:40 BP 138/69 10/23/21 14:40 Pulse Ox GENERAL: Well-developed in no acute distress. HEENT: No scleral icterus. Extraocular movements grossly intact. Hears conversational speech. No nasal drainage. NECK: Supple without lymphadenopathy. CHEST: Nonlabored respirations with equal bilateral excursions. CARDIOVASCULAR: Regular rate and rhythm.. Distal 2+ pulses. ABDOMEN: No infection. Incisions granulating MUSCULOSKELETAL: No clubbing, cyanosis. NEURO: No focal or lateralizing signs. Cranial nerves 2 through 12 grossly within normal limits. PSYCH: Appropriate affect. Alert and oriented to person, place and time. SKIN: Good skin turgor. Well perfused. ASSESSMENT: 1. Morbid obesity due to excess calories 2. Body mass index 45.9 to 40.4 3. Hypertensive heart disease 4. Gastroesophageal reflux disease 5. Osteoarthritis of the knee 6. Gallbladder disorder 7. Ulcerative colitis 8. Severe obstructive sleep apnea 9. Sigmoid diverticulosis 10. Right inguinal hernia 11. Ulcerative colitis 12. Status post sleeve gastrectomy PLAN: 1. Recommend simethicone for gas. 2. For indentation on skin, recommend massaging daily. 3. Follow up 1 month post-op. 4. Protein intake at 75 grams daily. Objective - Vital Signs Vital signs: Vital Signs Temp 98.2 F 10/23/21 14:40 Pulse 82 10/23/21 14:40 Resp 16 10/23/21 14:40 BP 138/69 10/23/21 14:40 Pulse Ox Intake & Output 10/22/21 10/23/21 10/23/21 18:59 06:59 18:59 Weight 103.419 kg Assessment/Plan Plan: Date: 10/23/21 Initial Weight: 85.729 kg Initial BMI: 33.5 Current Weight: 103.419 kg Current BMI: 40.4 Type of Surgery: Vertical Sleeve Gastrectomy Total Volume in Band: Previous Volume: Volume Removed: Volume Added: Band Size:
== END ==
LOC: BARWHC3 14:17
PROVIDERS: ATTEND Surgery Plastic and Reconstructive Surgery
DX: E66.01 Morbid (severe) obesity due to excess calories (principal); I11.9 Hypertensive heart disease without heart failure; K21.9 Gastro-esophageal reflux disease without esophagitis; M17.10 Unilateral primary osteoarthritis, unspecified knee; K82.9 Disease of gallbladder, unspecified; K51.90 Ulcerative colitis, unspecified, without complications; G47.33 Obstructive sleep apnea (adult) (pediatric); K57.30 Diverticulosis of large intestine without perforation or abscess without bleeding; K40.90 Unilateral inguinal hernia, without obstruction or gangrene, not specified as recurrent; Z68.41 Body mass index [BMI] 40.0-44.9, adult; Z98.84 Bariatric surgery status; Z87.891 Personal history of nicotine dependence; Z88.1 Allergy status to other antibiotic agents
CPT/HCPCS: 97803; G0463; 99211

== ENCOUNTER 2022-06-23 06:51 | Day surgery (SDC) | payer OTHER ==
[2022-06-18 09:22] VITALS: BMI 33.1
[~2022-06-23 06:51] MED LIST changes: +ONDANSETRON 4 MG/2 ML VIAL ONE
[2022-06-23 07:16] VITALS: TEMP 97.5
--- NOTE | 2022-06-23 07:58 | P.GSHP ---
History of Present Illness H&P Date: 06/23/22 CHIEF COMPLAINT: Colon screen HISTORY OF PRESENT ILLNESS: The patient is a 57-year-old female who presents for colon screen. Lower endoscopy was offered for further evaluation and management. PAST MEDICAL HISTORY: Please see list. PAST SURGICAL HISTORY: Please see list. MEDICATIONS: Please see list. ALLERGIES: Please see list. SOCIAL HISTORY: No illicit drug use FAMILY HISTORY: No reports of Crohn disease or ulcerative colitis. REVIEW OF ORGAN SYSTEMS: CONSTITUTIONAL: No reports of fevers or chills. PHYSICAL EXAM: VITAL SIGNS: Stable GENERAL: Well-developed pleasant in no acute distress. HEENT: No scleral icterus. Extraocular movements grossly intact. Moist buccal mucosa. NECK: Supple without lymphadenopathy. CHEST: Unlabored respirations. Equal bilateral excursions. CARDIOVASCULAR: Regular rate and rhythm. Distal 2+ pulses. ABDOMEN: Soft, nontender, nondistended. MUSCULOSKELETAL: No clubbing, cyanosis, or edema. ASSESSMENT: 1. Colon screen. PLAN: 1. Recommend proceeding with a lower endoscopy Past Medical History Past Medical History: GERD/Reflux, Hypertension, Sleep Apnea/CPAP/BIPAP Additional Past Medical History / Comment(s): RESOLVED SINCE GASTRIC SLEEVE History of Any Multi-Drug Resistant Organisms: MRSA Date of last positivie culture/infection: 09/03/16 MDRO Source:: buttock Past Surgical History: Bariatric Surgery, Joint Replacement, Orthopedic Surgery, Tonsillectomy, Tubal Ligation Additional Past Surgical History / Comment(s): Total left knee replacement 2017; Rt Total Knee 05/29/20. Colonoscopy, LT KNEE SCOPE, GASTRIC SLEEVE Past Anesthesia/Blood Transfusion Reactions: No Reported Reaction Smoking Status: Former smoker - Past Family History Father Family Medical History: Cancer Additional Family Medical History / Comment(s): Prostate CA Mother Family Medical History: Hypertension Brother(s) Family Medical History: Cancer Additional Family Medical History / Comment(s): pancreatic cancer Medications and Allergies Home Medications Medication Instructions Recorded Confirmed Type Losartan [Cozaar] 25 mg PO DAILY 04/25/20 06/23/22 History Levocetirizine Dihydrochloride 5 mg PO QAM 10/11/21 06/23/22 History [Xyzal] Ascorbic Acid [Vitamin C] 1,000 mg PO DAILY 01/29/22 06/23/22 History Biotin [Biotin Disolve] 10,000 mcg PO DAILY 01/29/22 06/23/22 History Calcium Carbonate/Vitamin D3 1 each PO DAILY 01/29/22 06/23/22 History [Calcium 600 mg-D3 20 mcg (800 unit)] Cholecalciferol [Vitamin D3 (25 25 mcg PO DAILY 01/29/22 06/23/22 History Mcg = 1000 Iu)] Cyanocobalamin (Vitamin B-12) 1,000 mcg PO DAILY 01/29/22 06/23/22 History [Vitamin B12] Mesalamine [Lialda] 1.2 gm PO DAILY 01/29/22 06/23/22 History Montelukast [Singulair] 10 mg PO DAILY 01/29/22 06/23/22 History Multivitamins, Thera [Multivitamin 1 tab PO DAILY 01/29/22 06/23/22 History (formulary)] Triamterene/Hydrochlorothiazid 1 each PO DAILY 01/29/22 06/23/22 History [Triamterene-Hctz 37.5-25 mg Cp] Vitamin A 2,400 mcg PO DAILY 01/29/22 06/23/22 History Zinc 50 mg PO DAILY 01/29/22 06/23/22 History Allergies Allergy/AdvReac Type Severity Reaction Status Date / Time cephalexin monohydrate Allergy Rash/Hives/ Verified 06/23/22 07:09 [From Keflex] itching Surgical - Exam Vital Signs Temp Pulse Resp BP Pulse Ox 97.5 F L 68 18 132/85 96 06/23/22 07:15 06/23/22 07:15 06/23/22 07:15 06/23/22 07:15 06/23/22 07:15
[2022-06-23] MEDS ORDERED: LIDOCAINE 2% INJ 20 MG/ML (2 ML VIAL) ONE (08:01)
[2022-06-23] MEDS ORDERED: PROPOFOL 10 MG/ML 20 ML VIAL IV ONE (08:01)
--- NOTE | 2022-06-23 08:25 | P.PCN ---
Date of Procedure: 06/23/22 Description of Procedure: PREOPERATIVE DIAGNOSIS: Colonoscopy screening. POSTOPERATIVE DIAGNOSIS: Colonoscopy screening. Diverticulosis, scattered. Diverticulitis, sigmoid colon OPERATION: Colonoscopy to the cecum, ileocecal valve and appendiceal orifice. SURGEON: Fela Bernabe MD. ANESTHESIA: MAC. INDICATIONS: The patient is a 57-year-old female who presents for colonoscopy screening. Benefits and risks were described and informed consent was obtained. DESCRIPTION OF PROCEDURE: The patient had undergone Sutab prep. The patient had been brought into the operating room and laid in the left lateral decubitus position. After adequate intravenous sedation, the rectum was examined with 2% lidocaine jelly. No external hemorrhoids were encountered. The rectal tone was within normal limits. No lesions were palpated in the rectal vault. An Olympus colonoscope was advanced until the cecum, ileocecal valve and appendiceal orifice were clearly viewed. The prep was excellent. Scattered diverticulosis was encountered. No colonic polyps were found. Localized diverticulitis identified at the sigmoid colon, mild. Retroflexion of the scope demonstrated grade 1 internal hemorrhoids without active bleeding or inflammation. The colon was desufflated. The patient had tolerated the procedure well. Withdrawal time was over 6 minutes. FINDINGS: Aronchick preparation quality scale 1 (1-5) Internal hemorrhoids, grade 1 No external prolapsed hemorrhoids. No arteriovenous malformations. No adenomatous polyps. Localized diverticulitis of the sigmoid colon Scattered diverticulosis RECOMMENDATIONS: Lower endoscopy in 3 years, 2024 Flagyl 500 mg 3 times a day for 10 days prescribed Plan - Discharge Summary Discharge Rx Participant: No New Discharge Prescriptions: New metroNIDAZOLE [Flagyl] 500 mg PO TID #30 tab Continue Losartan [Cozaar] 25 mg PO DAILY Montelukast [Singulair] 10 mg PO DAILY Cyanocobalamin (Vitamin B-12) [Vitamin B-12] 1,000 mcg PO DAILY Zinc 50 mg PO DAILY Vitamin A 2,400 mcg PO DAILY Mesalamine [Lialda] 1.2 gm PO DAILY Calcium Carbonate/Vitamin D3 [Calcium 600 mg-D3 20 mcg (800 unit)] 1 each PO DAILY Levocetirizine Dihydrochloride [Xyzal] 5 mg PO QAM Cholecalciferol [Vitamin D3 (25 Mcg = 1000 Iu)] 25 mcg PO DAILY Multivitamins, Thera [Multivitamin (formulary)] 1 tab PO DAILY Biotin [Biotin Disolve] 10,000 mcg PO DAILY Triamterene/Hydrochlorothiazid [Triamterene-Hctz 37.5-25 mg Cp] 1 each PO DAILY Ascorbic Acid [Vitamin C] 1,000 mg PO DAILY Discharge Medication List Losartan [Cozaar] 25 mg PO DAILY 04/25/20 [History] Levocetirizine Dihydrochloride [Xyzal] 5 mg PO QAM 10/11/21 [History] Ascorbic Acid [Vitamin C] 1,000 mg PO DAILY 01/29/22 [History] Biotin [Biotin Disolve] 10,000 mcg PO DAILY 01/29/22 [History] Calcium Carbonate/Vitamin D3 [Calcium 600 mg-D3 20 mcg (800 unit)] 1 each PO DAILY 01/29/22 [History] Cholecalciferol [Vitamin D3 (25 Mcg = 1000 Iu)] 25 mcg PO DAILY 01/29/22 [History] Cyanocobalamin (Vitamin B-12) [Vitamin B-12] 1,000 mcg PO DAILY 01/29/22 [History] Mesalamine [Lialda] 1.2 gm PO DAILY 01/29/22 [History] Montelukast [Singulair] 10 mg PO DAILY 01/29/22 [History] Multivitamins, Thera [Multivitamin (formulary)] 1 tab PO DAILY 01/29/22 [History] Triamterene/Hydrochlorothiazid [Triamterene-Hctz 37.5-25 mg Cp] 1 each PO DAILY 01/29/22 [History] Vitamin A 2,400 mcg PO DAILY 01/29/22 [History] Zinc 50 mg PO DAILY 01/29/22 [History] metroNIDAZOLE [Flagyl] 500 mg PO TID #30 tab 06/23/22 [Rx] Follow up [facility]ment[facility] [place] [facility] - [facility] Patient Instructions/Handouts: Diverticulitis (DC), Diverticulitis Diet (DC) Activity/Diet/Wound Care/Special Instructions: Repeat colonoscopy in 3 years, 2024 Discharge Disposition: HOME SELF-CARE
[2022-06-23 08:29] VITALS: RESP 16
[2022-06-23 09:06] VITALS: BP 103/68; PULSE 75
== END 2022-06-23 09:00 | disposition home or self-care (01) ==
LOC: ORWHC2ENDO 06:51
PROVIDERS: ATTEND Surgery Plastic and Reconstructive Surgery
DX: Z12.11 Encounter for screening for malignant neoplasm of colon (principal); K57.30 Diverticulosis of large intestine without perforation or abscess without bleeding; K57.32 Diverticulitis of large intestine without perforation or abscess without bleeding; K64.0 First degree hemorrhoids; K21.9 Gastro-esophageal reflux disease without esophagitis; I10 Essential (primary) hypertension; G47.30 Sleep apnea, unspecified; Z98.890 Other specified postprocedural states; Z98.84 Bariatric surgery status; Z87.891 Personal history of nicotine dependence; Z99.89 Dependence on other enabling machines and devices; Z80.42 Family history of malignant neoplasm of prostate; Z82.49 Family history of ischemic heart disease and other diseases of the circulatory system; Z79.899 Other long term (current) drug therapy; Z88.1 Allergy status to other antibiotic agents
CPT/HCPCS: G0121; J2704; J2001; 45378

== ENCOUNTER → 2022-07-17 | Outpatient (CLI) | payer OTHER ==
[2022-07-17 12:05] LABS: INR 0.9 (<1.2); Prothrombin Time 10.1 sec (9.0-12.0)
[2022-07-17 17:56] LABS: HCT 40.7 % (37.2-46.3); HGB 13.5 g/dL (12.0-15.0); MCH 30.3 pg (27.0-32.0); MCHC 33.2 g/dL (32.0-37.0); MCV 91.5 fL (80.0-97.0); Mean Platelet Volume 10.2 fL (9.5-12.2); NRBC Per 100 WBC 0 /100 WBCS (0.0-0.0); Platelet Count 315 X 10*3/uL (140-440); RBC 4.45 X 10*6/uL (4.10-5.20); RDW 14.5 % (11.5-14.5); WBC 5.92 X 10*3/uL (4.50-10.00)
[2022-07-17 19:55] LABS: LDL Cholesterol,Calculated 129.7 mg/dL (0.0-131.0); VLDL Calculation 18.04 mg/dL (5.00-40.00)
[2022-07-17 20:30] LABS: % Iron Saturation 34.09 (12.00-45.00); ALT 23 U/L (8-44); AST 18 U/L (13-35); African American GFR (CKD) 123.6 (60.0-200.0); Albumin 4.1 g/dL (3.8-4.9); Albumin/Globulin Ratio 1.41 (1.60-3.17); Alkaline Phosphatase 66 U/L (41-126); Blood Urea Nitrogen 18.5 mg/dL (9.0-27.0); Calcium 9.1 mg/dL (8.7-10.3); Carbon Dioxide 23.2 mmol/L (20.0-27.5); Chloride 104 mmol/L (96-109); Globulin 2.9 g/dL (1.6-3.3); Glucose 74 mg/dL (70-110); Iron 82 ug/dL (50-170); Magnesium 2.1 mg/dL (1.5-2.4); Non-African American GFR(CKD) 106.7 (60.0-200.0); Phosphorus 4.1 mg/dL (2.4-5.1); Potassium 3.6 mmol/L (3.5-5.5); Sodium 145 mmol/L (135-145); Total Iron Binding Capacity 241 ug/dL (228-460)
[2022-07-18 12:05] LABS: Zinc, Serum 72 ug/dL (60-130)
== END | disposition home or self-care (01) ==
LOC: LABWHC1 10:16
PROVIDERS: ATTEND Surgery Plastic and Reconstructive Surgery
DX: E66.01 Morbid (severe) obesity due to excess calories (principal); E89.1 Postprocedural hypoinsulinemia; D50.8 Other iron deficiency anemias; K91.2 Postsurgical malabsorption, not elsewhere classified; E44.0 Moderate protein-calorie malnutrition; E55.9 Vitamin D deficiency, unspecified; K74.1 Hepatic sclerosis; N19 Unspecified kidney failure; T56.894A Toxic effect of other metals, undetermined, initial encounter; K50.90 Crohn's disease, unspecified, without complications
CPT/HCPCS: 36415; 80053; 80061; 82306; 82525; 82607; 82728; 82746; 83036; 83540; 83550; 83735; 83970; 84100; 84134; 84255; 84425; 84443; 84590; 84630; 85027; 85610; 85730

== ENCOUNTER → 2023-02-18 | Outpatient (CLI) | payer OTHER ==
[2023-02-18 22:53] LABS: HCT 41.2 % (37.2-46.3); MCH 29.2 pg (27.0-32.0); MCHC 31.6 d/dL (32.0-37.0); MCV 92.6 FL (80.0-97.0); Mean Platelet Volume 10.5 FL (9.5-12.2); NRBC Per 100 WBC 0 X 10*3/uL (0.00-0.01); Platelet Count 317 X 10*3/uL (140-440); RBC 4.45 X 10*6/uL (4.10-5.20); RDW 15.6 % (11.5-14.5)
== END | disposition home or self-care (01) ==
LOC: LABPAT 14:09
PROVIDERS: ATTEND Surgery Plastic and Reconstructive Surgery
DX: Z01.812 Encounter for preprocedural laboratory examination (principal); K40.90 Unilateral inguinal hernia, without obstruction or gangrene, not specified as recurrent
CPT/HCPCS: 85027

== ENCOUNTER → 2023-02-20 | Day surgery (SDC) | payer OTHER ==
[2023-02-17 11:44] VITALS: BMI 34.5
[~2023-02-20] MED LIST changes: +ACETAMINOPHEN TAB 500 MG TAB ONE; +ACETAMINOPHEN TAB 500 MG TAB PO PRN; +ACETAMINOPHEN TAB 500 MG TAB PO STA; +DEXAMETHASONE SOD PHOSPHATE 4 MG/ML 1 ML VIAL IVP ONE; +DEXAMETHASONE SOD PHOSPHATE 4 MG/ML 1 ML VIAL ONE; +GLYCOPYRROLATE 0.2 MG/ML 2 ML VIAL ONE; +HEPARIN SODIUM,PORCINE/PF 5,000 UNIT/0.5 ML SYRINGE SQ PRN; +HYDROmorphone (PF) 1 MG/ML ONE; +LIDOCAINE 2% INJ 20 MG/ML (2 ML VIAL) ONE; +LIDOCAINE 2%-EPI 1:100,000 20 ML VIAL SQ ONE; +MIDAZOLAM 2 MG/2 ML VIAL IV PRN; +MIDAZOLAM 2 MG/2 ML VIAL IVP ONE; +MIDAZOLAM 2 MG/2 ML VIAL ONE; +NEOSTIGMINE 1 MG/ML 10 ML VIAL ONE; +ONDANSETRON 4 MG/2 ML VIAL IVP PRN; +PROPOFOL 10 MG/ML 20 ML VIAL IV ONE; +ROCURONIUM 10 MG/ML (5 ML VIAL) IV ONE; +ROPIVACAINE 5 MG/ML 30 ML VIAL ONE; +SCOPOLAMINE 1 MG/72 HR PATCH TRANSDERM ONE; +SODIUM CHLORIDE 0.9% (PF) 10 ML VIAL ONE; +SUCCINYLCHOLINE CHLORIDE 200 MG/10 ML VIAL IV ONE; +fentaNYL (PF) 50 MCG/ML 2 ML AMP ONE
--- NOTE | 2023-02-20 14:20 | P.GSHP ---
History of Present Illness H&P Date: 02/20/23 CHIEF COMPLAINT: Inguinal hernia, right. HISTORY OF PRESENT ILLNESS: The patient is a 57-year-old female who presents with a history of swelling and pain along the right groin. She has noted increased swelling including pain of the area. Now she presents for repair of her inguinal hernia. PAST MEDICAL HISTORY: Please see list. PAST SURGICAL HISTORY: Please see list. MEDICATIONS: Please see list. ALLERGIES: Please see list. SOCIAL HISTORY: No illicit drug use FAMILY HISTORY: No reports of Crohn disease or ulcerative colitis. REVIEW OF ORGAN SYSTEMS: CONSTITUTIONAL: No reports of fevers or chills. No reports of weight loss despite prior attempts. GI: Denies any blood in stools or constipation. PHYSICAL EXAM: VITAL SIGNS: Stable GENERAL: Well-developed pleasant in no acute distress. HEENT: No scleral icterus. Extraocular movements grossly intact. Moist buccal mucosa. NECK: Supple without lymphadenopathy. CHEST: Unlabored respirations. Equal bilateral excursions. CARDIOVASCULAR: Regular rate and rhythm. Distal 2+ pulses. ABDOMEN: Soft, nondistended. No peritoneal signs. Moderate tenderness right lower quadrant MUSCULOSKELETAL: No clubbing, cyanosis, or edema. ASSESSMENT: 1. Inguinal hernia, right initial and symptomatic. PLAN: 1. Recommend proceeding robotic inguinal repair with mesh with possible bilateral approach. 2. Benefits and risks of surgical intervention was discussed including possibility of open technique. 3. DVT prophylaxis. 4. Antibiotic prophylaxis. 5. Non narcotic pain management including abdominal wall block described 6. Blood sugar glucose described. 7. Weight loss management described. Past Medical History Past Medical History: GERD/Reflux, Hypertension, Sleep Apnea/CPAP/BIPAP Additional Past Medical History / Comment(s): SLEEP APNEA-RESOLVED SINCE GASTRIC SLEEVE History of Any Multi-Drug Resistant Organisms: MRSA Date of last positivie culture/infection: 09/03/16 MDRO Source:: buttock Past Surgical History: Bariatric Surgery, Joint Replacement, Orthopedic Surgery, Tonsillectomy, Tubal Ligation Additional Past Surgical History / Comment(s): Total left knee replacement 2017; Rt Total Knee 05/29/20. Colonoscopy, LT KNEE SCOPE, GASTRIC SLEEVE Past Anesthesia/Blood Transfusion Reactions: No Reported Reaction Smoking Status: Former smoker - Past Family History Father Family Medical History: Cancer Additional Family Medical History / Comment(s): Prostate CA Mother Family Medical History: Hypertension Brother(s) Family Medical History: Cancer Additional Family Medical History / Comment(s): pancreatic cancer Medications and Allergies Home Medications Medication Instructions Recorded Confirmed Type Levocetirizine Dihydrochloride 5 mg PO QAM 10/11/21 02/20/23 History [Xyzal] Ascorbic Acid [Vitamin C] 1,000 mg PO DAILY 01/29/22 02/20/23 History Biotin [Biotin Disolve] 10,000 mcg PO DAILY 01/29/22 02/20/23 History Calcium Carbonate/Vitamin D3 1 each PO DAILY 01/29/22 02/20/23 History [Calcium 600 mg-D3 20 mcg (800 unit)] Cholecalciferol [Vitamin D3 (25 25 mcg PO DAILY 01/29/22 02/20/23 History Mcg = 1000 Iu)] Mesalamine [Lialda] 1.2 gm PO DAILY 01/29/22 02/20/23 History Multivitamins, Thera [Multivitamin 1 tab PO DAILY 01/29/22 02/20/23 History (formulary)] Triamterene/Hydrochlorothiazid 1 each PO DAILY 01/29/22 02/20/23 History [Triamterene-Hctz 37.5-25 mg Cp] Vitamin A 2,400 mcg PO DAILY 01/29/22 02/20/23 History Zinc 50 mg PO DAILY 01/29/22 02/20/23 History Nystatin 100,000 Unit/gm Powd 1 applic TOPICAL BID #60 gm 10/15/22 02/20/23 Rx [Mycostatin Powder] Famotidine [Pepcid] 20 mg PO HS 02/17/23 02/20/23 History Ibuprofen [Motrin Ib] 800 mg PO Q8H PRN 02/17/23 02/20/23 History traZODone HCL [Desyrel] 50 mg PO HS PRN 02/20/23 02/20/23 History Allergies Allergy/AdvReac Type Severity Reaction Status Date / Time cephalexin monohydrate Allergy Rash/Hives/ Verified 02/20/23 12:58 [From Keflex] itching Surgical - Exam Vital Signs Temp Pulse Resp BP Pulse Ox 97.7 F 75 16 141/65 97 02/20/23 12:56 02/20/23 12:56 02/20/23 12:56 02/20/23 12:56 02/20/23 12:56
--- NOTE | 2023-02-20 14:29 | P.ANPRN ---
Procedure Note - Anesthesia - Nerve Block Performed Bilateral Erector Spinae Single Time Out Performed: Yes Date of Procedure: 02/20/23 Procedure Start Time: 13:44 Procedure Stop Time: 13:57 Location of Patient: PreOp Indication: Acute Post-Operative Pain, Requested by Surgeon Sedation Type: Sedate with meaningful contact maintained Preparation: Sterile Prep Position: Prone Needle Types: Pajunk Needle Gauge: 21 Ultrasound used to visualize needle placement: Yes Ultrasound used to observe medication spread: Yes Blood Aspirated: No Pain Paresthesia on Injection Noted: No Resistance on Injection: Normal Image Stored and Saved: Yes Events: Uneventful and Well Tolerated (ropi .5% 15cc plus ns 10cc plus dexamethasone 4mg given bilaterally at Li)
[2023-02-20] MEDS: HYDROmorphone 0.5 MG/0.5 ML SYRINGE IVP PRN ×3 (16:50→17:13)
[2023-02-20 16:57] VITALS: TEMP 97.1
--- NOTE | 2023-02-20 17:18 | P.OP ---
Date of Procedure: 02/20/23 Description of Procedure: SURGEON: FELA BERNABE MD PREOPERATIVE DIAGNOSES: 1. Initial right inguinal hernia. 2. Hypertensive heart disease 3. Morbid obesity due to excess calories, BMI 35.0 4. Ulcerative colitis 5. Gastroesophageal reflux disease 6. Obstructive sleep apnea 7. History of MRSA 8. History of sleeve gastrectomy POSTOPERATIVE DIAGNOSES: 1. Initial right inguinal hernia, indirect, incarcerated 2. Subfascial right inguinal lipoma, 9 x 4 cm 3. Morbid obesity due to excess calories, BMI 35.0 4. Ulcerative colitis 5. Gastroesophageal reflux disease 6. Obstructive sleep apnea 7. History of MRSA 8. History of sleeve gastrectomy 9. Hypertensive heart disease OPERATION: 1. Robotic-assisted da Lexie Xi laparoscopic right inguinal hernia repair with mesh, 11.[address] 2. Excision of subfascial right inguinal lipoma, 9 x 4 cm ANESTHESIA: General with local anesthetic ESTIMATED BLOOD LOSS: 5 mL. SPECIMENS REMOVED: Right inguinal hernia lipoma COMPLICATIONS: None. FINDINGS: 1. Nyhus type II indirect inguinal hernia, incarcerated, 2 x 2 centimeters 2. Non-absorbable 2-0 VLOC used 3. Subfascial right inguinal lipoma, 9 x 4 cm INDICATIONS: The patient is a 57-year-old female who presents with right groin pain. Now presents for definitive surgical intervention. Laparoscopic versus open and robotic approaches were discussed. Benefits and risks including bleeding, infection, injury to the vas deferens as well as sterility and chronic groin pain were reviewed. Placement of mesh was also described. Informed consent was obtained. DESCRIPTION: In the preoperative area, the patient was marked with indelible marker along the inguinal hernia. The patient was brought to the operating room and initially laid in supine position. The abdomen had been prepped and draped in standard sterile fashion. Ioban draping was also placed. Prior to incision, a timeout protocol was confirmed with surgical team regarding patient's name including procedures to be performed and location along the right groin. Initial positioning for the robotic assisted ports were selected whereby 20 cm superior to the target anatomy, 0 degree 5 mm laparoscopic trocar entry was performed at the left upper quadrant. The abdomen was insufflated to 15 mmHg which he had tolerated well. Diagnostic laparoscopy demonstrated a indirect inguinal hernia along the right groin. Next, along the epigastrium, 8 mm robot trocar was placed. An 8-mm robotic tro car was placed under direct visualization at the right upper quadrant. An 8 mm port was placed at the left upper quadrant. All trocars were positioned between 8 to 10-cm apart from each other. An accessory trocar was placed on the right lateral abdominal wall 12 mm. The [employer] XI robot was primed, draped, prepared for docking along the right side of the patient. The patient was placed in Trendelenberg position 21-degrees. I then went to the [employer] Xi console. The assistant case manager was at bedside for exchange of the robot arms and equipment. No hernia was identified along the left groin. The right inguinal hernia sac was evaginated whereby the peritoneum was scored using Endo scissors with cautery. Once completely reduced into the abdominal cavity, the peritoneal sac of the hernia was stripped along an direct inguinal hernia and a subfascial inguinal lipoma, 9 x 3 -cm and sac was resected and then passed off for further pathological analysis. The size of the direct inguinal hernia defect was 2 x 2 cm with intraoperative films obtained. Using nonabsorbable 2-0 VLOC, the peritoneal defect of the right inguinal hernia site was closed using a pursestring suture. The defect was found to be completely closed with complete reduction of the right direct inguinal hernia was confirmed. As an onlay, an 11.[address] mesh by [employer] was initially cut in half and entered into the abdominal cavity via the 8 mm trocar. The mesh was tacked to the pelvis using absorbable 2-0 VLOC 9-inch length sutures. The robot was undocked from the patient's bedside. I then rescrubbed into the case. Insufflation was released from the abdominal cavity and all instruments were removed from the abdominal cavity. The rest of incisions were reapproximated using 4-0 Monocryl in a running subcuticular fashion. Incisions were cleansed using dilute hydrogen peroxide. Liquid glue was applied to the skin. At the end of the procedure, the needle, sponge and instrument counts had been verified correct by the surgical garment assembly supervisor. The patient had tolerated the procedure well and was taken to the postanesthesia care unit in stable condition. Patient's was notified via telephone regarding findings of surgery. Plan - Discharge Summary Discharge Rx Participant: Yes New Discharge Prescriptions: New Acetaminophen Tab [Tylenol Tab] 1,000 mg PO Q6HR PRN #30 tablet PRN Reason: Pain Simethicone [Gas-X] 125 mg PO AC-TID PRN #20 capsule PRN Reason: Pain Ibuprofen 800 mg PO Q8H #30 tab Continue Zinc 50 mg PO DAILY Vitamin A 2,400 mcg PO DAILY Mesalamine [Lialda] 1.2 gm PO DAILY Calcium Carbonate/Vitamin D3 [Calcium 600 mg-D3 20 mcg (800 unit)] 1 each PO DAILY Ibuprofen [Motrin Ib] 800 mg PO Q8H PRN PRN Reason: Pain Famotidine [Pepcid] 20 mg PO HS Levocetirizine Dihydrochloride [Xyzal] 5 mg PO QAM Cholecalciferol [Vitamin D3 (25 Mcg = 1000 Iu)] 25 mcg PO DAILY Multivitamins, Thera [Multivitamin (formulary)] 1 tab PO DAILY Biotin [Biotin Disolve] 10,000 mcg PO DAILY Triamterene/Hydrochlorothiazid [Triamterene-Hctz 37.5-25 mg Cp] 1 each PO DAILY Ascorbic Acid [Vitamin C] 1,000 mg PO DAILY Nystatin 100,000 Unit/gm Powd [Mycostatin Powder] 1 applic TOPICAL BID #60 gm traZODone HCL [Desyrel] 50 mg PO HS PRN PRN Reason: Insomnia Discharge Medication List Levocetirizine Dihydrochloride [Xyzal] 5 mg PO QAM 10/11/21 [History] Ascorbic Acid [Vitamin C] 1,000 mg PO DAILY 01/29/22 [History] Biotin [Biotin Disolve] 10,000 mcg PO DAILY 01/29/22 [History] Calcium Carbonate/Vitamin D3 [Calcium 600 mg-D3 20 mcg (800 unit)] 1 each PO DAILY 01/29/22 [History] Cholecalciferol [Vitamin D3 (25 Mcg = 1000 Iu)] 25 mcg PO DAILY 01/29/22 [History] Mesalamine [Lialda] 1.2 gm PO DAILY 01/29/22 [History] Multivitamins, Thera [Multivitamin (formulary)] 1 tab PO DAILY 01/29/22 [History] Triamterene/Hydrochlorothiazid [Triamterene-Hctz 37.5-25 mg Cp] 1 each PO DAILY 01/29/22 [History] Vitamin A 2,400 mcg PO DAILY 01/29/22 [History] Zinc 50 mg PO DAILY 01/29/22 [History] Nystatin 100,000 Unit/gm Powd [Mycostatin Powder] 1 applic TOPICAL BID #60 gm 10/15/22 [Rx] Famotidine [Pepcid] 20 mg PO HS 02/17/23 [History] Ibuprofen [Motrin Ib] 800 mg PO Q8H PRN 02/17/23 [History] Acetaminophen Tab [Tylenol Tab] 1,000 mg PO Q6HR PRN #30 tablet 02/20/23 [Rx] Ibuprofen 800 mg PO Q8H #30 tab 02/20/23 [Rx] Simethicone [Gas-X] 125 mg PO AC-TID PRN #20 capsule 02/20/23 [Rx] traZODone HCL [Desyrel] 50 mg PO HS PRN 02/20/23 [History] Follow up Appointment(s)/Referral(s): Fela Bernabe MD [STAFF PHYSICIAN] - 02/24/23 Patient Instructions/Handouts: *[facility] - Managing Your Pain After Surgery Without Opioids, *[facility] - Scopalamine Patch Instructions, Laparoscopic Herniorrhaphy (DC), Inguinal Hernia Repair (DC) Activity/Diet/Wound Care/Special Instructions: Using antibacterial soap. No lifting over 10 pounds 2 weeks, March 06December shower. No bathtub soaks for 2 weeks, March 06 Wear abdominal binder daily for comfort except for showering. Use ice along incisions for today to prevent swelling. Take tylenol, aleve/ibuprofen, simethicone scheduled for 3 days for best pain relief Discharge Disposition: HOME SELF-CARE
[2023-02-20 17:44] VITALS: RESP 16
[2023-02-20 19:22] VITALS: BP 128/70; PULSE 65
== END | disposition home or self-care (01) ==
LOC: OR 10:55
PROVIDERS: ATTEND Surgery Plastic and Reconstructive Surgery
DX: K40.30 Unilateral inguinal hernia, with obstruction, without gangrene, not specified as recurrent (principal); D17.5 Benign lipomatous neoplasm of intra-abdominal organs; G89.18 Other acute postprocedural pain; E66.9 Obesity, unspecified; Z68.35 Body mass index [BMI] 35.0-35.9, adult; I11.9 Hypertensive heart disease without heart failure; K51.90 Ulcerative colitis, unspecified, without complications; G47.33 Obstructive sleep apnea (adult) (pediatric); Z99.89 Dependence on other enabling machines and devices; G43.909 Migraine, unspecified, not intractable, without status migrainosus; K21.9 Gastro-esophageal reflux disease without esophagitis; Z86.14 Personal history of Methicillin resistant Staphylococcus aureus infection; Z98.84 Bariatric surgery status; Z87.891 Personal history of nicotine dependence; Z79.1 Long term (current) use of non-steroidal anti-inflammatories (NSAID); Z79.899 Other long term (current) drug therapy; Z88.1 Allergy status to other antibiotic agents
CPT/HCPCS: 49650; S2900; 64999; 88302; 88304

== ENCOUNTER → 2023-05-27 | Outpatient (CLI) | payer OTHER ==
[2023-05-27 15:43] VITALS: BP 132/84; PULSE 69; TEMP 98.2; BMI 35.7
--- NOTE | 2023-05-27 16:24 | P.BASOAP ---
Subjective Progress Note Date: 05/27/23 No GERD. SHe has her sleeve. Occasional right groin pain. She is going up. She has weight gain. Her mother passed with weight loss. 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 She wants to get back into weight loss. She is not exercising. She has a new adjustment. She gained 15 pounds. She is off losartan. So medications avoidiance advised. She has sugar cravings.Follow up in 3 weeks. Objective - Vital Signs Vital signs: Vital Signs Temp 98.2 F 05/27/23 15:39 Pulse 69 05/27/23 15:39 Resp BP 132/84 05/27/23 15:39 Pulse Ox FiO2 Intake & Output 05/26/23 05/27/23 05/27/23 18:59 06:59 18:59 Weight 91.626 kg Assessment/Plan Plan: Date: 05/27/23 Initial Weight: 85.729 kg Initial BMI: 33.5 Current Weight: 91.626 kg Current BMI: 35.7 Type of Surgery: Total Volume in Band: Previous Volume: Volume Removed: Volume Added: Band Size:
== END ==
LOC: BARWHC3 14:48
PROVIDERS: ATTEND Surgery Plastic and Reconstructive Surgery
DX: Z53.9 Procedure and treatment not carried out, unspecified reason (principal)
CPT/HCPCS: 99211

== ENCOUNTER → 2023-05-28 | Outpatient (CLI) | payer OTHER ==
[2023-05-28 17:47] LABS: Partial Thromboplastin Time 27.7 sec (22.0-30.0)
[2023-05-28 18:20] LABS: Prothrombin Time 10.6 sec (10.0-12.5)
[2023-05-29 04:05] LABS: % Iron Saturation 10.65 (12.00-45.00); ALT 19 U/L (8-44); AST 22 U/L (13-35); Albumin 4.5 d/dL (3.8-4.9); Albumin/Globulin Ratio 1.61 Ratio (1.60-3.17); Alkaline Phosphatase 100 U/L (41-126); BUN/Creat Ratio 25.29 Ratio (12.00-20.00); Blood Urea Nitrogen 17.7 mg/dL (9.0-27.0); Calcium 9.7 mg/dL (8.7-10.3); Chloride 100 mmol/L (96-109); Chol/HDL Ratio 3.56 Ratio; Globulin 2.8 d/dL (1.6-3.3); Glucose 95 mg/dL (70-110); Iron 28 UG/DL (50-170); LDL Cholesterol,Calculated 121.7 mg/dL (0.0-131.0); Magnesium 2.1 mg/dL (1.5-2.4); Phosphorus 3.4 mg/dL (2.4-5.1); Potassium 3.5 mmol/L (3.5-5.5); Sodium 142 mmol/L (135-145); Total Bilirubin 0.2 mg/dL (0.3-1.2); Total Iron Binding Capacity 263 UG/DL (228-460); Total Protein 7.3 d/dL (6.2-8.2)
[2023-05-29 04:19] LABS: HCT 42.8 % (37.2-46.3); HGB 14.1 d/dL (12.0-15.0); MCH 29.6 pg (27.0-32.0); MCHC 32.9 d/dL (32.0-37.0); MCV 89.9 FL (80.0-97.0); Mean Platelet Volume 10.3 FL (9.5-12.2); NRBC Per 100 WBC 0 X 10*3/uL (0.00-0.01); Platelet Count 318 X 10*3/uL (140-440); RBC 4.76 X 10*6/uL (4.10-5.20); RDW 14.2 % (11.5-14.5); WBC 9.04 X 10*3/uL (4.50-10.00)
[2023-05-29 10:10] LABS: Prealbumin 16.9 mg/dL (18.0-42.0)
[2023-05-29 12:42] LABS: Zinc, Serum 92 ug/dL (60-130)
== END | disposition home or self-care (01) ==
LOC: LABWHC1 16:06
PROVIDERS: ATTEND Surgery Plastic and Reconstructive Surgery
DX: D50.8 Other iron deficiency anemias (principal); E66.01 Morbid (severe) obesity due to excess calories; K91.2 Postsurgical malabsorption, not elsewhere classified; E44.0 Moderate protein-calorie malnutrition; E44.1 Mild protein-calorie malnutrition; E45 Retarded development following protein-calorie malnutrition; E55.9 Vitamin D deficiency, unspecified; K74.1 Hepatic sclerosis; N19 Unspecified kidney failure; T56.894A Toxic effect of other metals, undetermined, initial encounter; K50.90 Crohn's disease, unspecified, without complications
CPT/HCPCS: 36415; 80053; 80061; 82306; 82525; 82607; 82728; 82746; 83036; 83540; 83550; 83735; 83970; 84100; 84134; 84255; 84425; 84443; 84590; 84630; 85027; 85610; 85730